=== PATIENT | female | born 2000 | race Caucasian/White ===

== ENCOUNTER → 2019-03-22 17:36 | Outpatient (CLI) | payer OTHER, SELFPAY ==
--- NOTE | 2019-03-22 | DI.MRI.S_ITS ---
PROCEDURE: MR WRIST LT WO/W CON INDICATIONS: LEFT WRIST GANGLION TECHNIQUE: Noncontrast coronal proton density fast spin echo and T2 fast spin echo with fat saturation; coronal 3-D gradient echo, axial T1 spin echo and T2 fast spin echo with fat saturation, axial T1 spin echo with fat saturation, sagittal T1 spin echo through the wrist. Post-contrast axial, coronal, and sagittal T1 spin echo with fat saturation through the wrist. COMPARISON: None. FINDINGS: Image quality: Excellent. Bones and cartilage: No suspicious osseous enhancement. The carpal bones are normally aligned. No bone marrow contusions or fractures. No evidence for avascular necrosis. Overlying cartilage surfaces appear normal. Carpal ligaments: The scapholunate and lunotriquetral ligaments appear intact. In the absence of intra-articular contrast, the extrinsic carpal ligaments are not well identified. On sagittal images, the pisohamate ligament appears intact. Triangular fibrocartilage complex: The triangular fibrocartilage appears intact. The adjacent meniscal homolog appears normal in the absence of intra-articular contrast. The extensor carpi ulnaris tendon is normal in location and morphology. Tendons and soft tissues: No suspicious soft tissue enhancement. The carpal tunnel structures appear normal, including the median nerve. The ulnar nerve appears normal within Guyon's canal. All six extensor tendon compartments demonstrate normal morphology, without pathologic tendon sheath fluid. 3 x 7 x 6 millimeter cystic structure is noted dorsal to the extensor digitorum and indices tendons at the level of capitate. No enhancement is noted within this area. IMPRESSION: 1. Finding is suggestive of a 3 x 7 x 6 mm ganglion cyst over dorsal aspect of the extensor digitorum and indices tendons at the level of capitate. 2. No other soft tissue mass or ganglion cyst is seen. No area of abnormal contrast enhancement. 3. Wrist tendons and ligaments are grossly intact. No marrow signal abnormality. No abnormal intraosseous enhancement. Dictated by: Terrell Sheikh M.D. on 03/23/2019 at 12:17 Approved by: Terrell Sheikh M.D. on 03/23/2019 at 12:28
== END ==
PROVIDERS: Visit Provider Orthopaedic Surgery
DX: M67.432 Ganglion, left wrist (principal)
CPT/HCPCS: 73223; A9579

== ENCOUNTER → 2019-11-15 07:45 | Outpatient (CLI) | payer OTHER, SELFPAY ==
--- NOTE | 2019-11-15 07:47 | DI.US.S_ITS ---
PROCEDURE: US OB LIMITED INDICATIONS: EFW; PLACENTAL LOCATION OUTSIDE/PRIOR DATING DATA: Last menstrual period (LMP): 03/19/19. LMP-based estimated date of delivery (YANA): 12/24/19. First dating scan (date and location): 08/07/19. Estimated date of delivery (YANA) from first dating scan: 12/24/19. TECHNIQUE: Real-time scanning was performed of the fetus, with image documentation and biometric measurements. COMPARISON: [facility], , US OB > 14 WEEKS, 08/07/2019, 7:17. FINDINGS: General: A single living intrauterine gestation is present. Presentation: Cephalic Placenta: Placental position is anterior without evidence of previa Amniotic fluid index: 17.3 cm heart rate: 141 beats per minute. Maternal cervical canal: 3.7 cm. biometrics: Biparietal diameter: 8.7 cm, 35 weeks 1 day Head circumference: 32.3 cm, 36 weeks 3 days Abdominal circumference: 32.0 cm, 35 weeks 6 days Femur length: 7.0 cm, 36 weeks 0 days Estimated gestational age from initial scan: 34 weeks 3 days Composite gestational age from present scan: 35 weeks 6 days Estimated weight and percentile: 2796 g (85th percentile) Other: A formal anatomic survey was not performed. No gross anatomic abnormalities are evident on the provided images. IMPRESSION: 1. Single live intrauterine at 35 weeks 6 days (current sonographic YANA 12/14/19) is borderline discordant with the dates from the previous ultrasound by 10 days. The need for followup imaging may be determined clinically. 2. Estimated weight is in the 85th percentile. Dictated by: Jett Abernathy M.D. on 11/15/2019 at 8:40 Approved by: Jett Abernathy M.D. on 11/15/2019 at 8:44
== END ==
PROVIDERS: Visit Provider Obstetrics & Gynecology
DX: Z34.83 Encounter for supervision of other normal pregnancy, third trimester (principal); Z3A.35 35 weeks gestation of pregnancy
CPT/HCPCS: 76815

== ENCOUNTER 2019-11-29 17:04 | Observation (INO) | payer OTHER, SELFPAY ==
--- NOTE | 2019-11-29 20:23 | P.TNLD_ITS ---
Visit Information Visit Information Date of evaluation: 11/29/19 Primary OB Provider: Candis Patel Comments/Additional reasons for admission: This patient is a 19yo @ 36 and 3 with GDM A1, presenting for an NST after an 06/15 BPP in the office. Patient reports feeling well today with no complaints obstetrical or otherwise. Reiterated kick counts and antepartum precautions. [facility] Medical History Anxiety (Chronic ~2005) Foot pain (Chronic ~2006) Seizure disorder (Inactive) Surgical History H/O foot surgery (Inactive) Social History marital status: unmarried,single household members: family (Father, mother, siblings.) lives independently: Yes occupational status: unemployed do you feel safe at home: Yes Smoking Status: Never smoker substance use type: does not use Type(s) of exercise: walking Review of Systems Constitutional Constitutional: Reports system reviewed and no additional complaints, except as documented Gastrointestinal Gastrointestinal: Reports system reviewed and no additional complaints, except as documented Exam Vital Signs (past 8 hours): 125/77, HR 95 Const General: cooperative, healthy appearing and comfortable Evaluation Evaluation Baseline heart rate: 140 Variability: Average (6-10) monitor accelerations: Present monitor decelerations: Absent Category of Tracing: I Diagnosis, Plan/Disposition Plan/Disposition Plan: After tracing settled to category 1 and reassuring, patient discharged with antepartum precautions to proceed with scheduled outpatient follow-up. OB Disposition: home
[2019-11-30 14:44] LABS: Strep Grp B PCR NEG for Grp B Strep
== END 2019-11-29 20:50 | disposition home or self-care (01) ==
LOC: LAB 17:08 → LABOR 17:10
PROVIDERS: Admitting Provider Obstetrics & Gynecology; Visit Provider Obstetrics & Gynecology
DX: O24.419 Gestational diabetes mellitus in pregnancy, unspecified control (principal); Z3A.36 36 weeks gestation of pregnancy
CPT/HCPCS: 59025; 59050; 87077; 87086; 87653; G0378

== ENCOUNTER 2019-12-01 14:45 | Observation (INO) | payer OTHER, SELFPAY ==
--- NOTE | 2019-12-01 16:08 | DI.US.S_ITS ---
PROCEDURE: US ABDOMEN LIMITED INDICATIONS: RUQ PAIN, SUSPECT GB PATHOLOGY TECHNIQUE: Real-time focused scanning was performed of the abdomen, with image documentation. COMPARISON: None. FINDINGS: Liver has a normal echo pattern. Gallbladder is unremarkable. No stones or fluid around the gallbladder or gallbladder wall thickening or pain on examination. Visualized portions of the pancreas are unremarkable. No biliary ductal dilatation. No right hydronephrosis. IMPRESSION: Unremarkable limited ultrasound of the right upper quadrant. No evidence of gallstone disease. Dictated by: Elver Metz M.D. on 12/01/2019 at 16:12 Approved by: Elver Metz M.D. on 12/01/2019 at 16:13
[2019-12-01 17:14] LABS: Add Manual Diff / Slide Review NO; Basophils Absolute Auto 0 /uL (0-100); Basophils Percent Auto 0.5 % (0-2); Eosinophils Absolute Auto 100 /uL (0-450); Eosinophils Percent Auto 0.8 % (2-4); Hematocrit 28.4 % (36-46); Hemoglobin 9.3 g/dL (12.0-16.0); Lymphocytes Absolute Auto 1700 /uL (1100-4500); Lymphocytes Percent Auto 20.2 % (25-40); Mean Corpuscular HGB Conc 32.8 % (30-36); Mean Corpuscular Hemoglobin 24.4 PG (26-34); Mean Corpuscular Volume 74.2 fL (80-100); Monocytes Absolute Auto 900 /uL (0-900); Monocytes Percent Auto 11.3 % (3-14); Neutrophils Absolute Auto 5600 /uL (1500-7000); Neutrophils Percent Auto 67.2 % (50-75); Platelet Count 201 X10^3/uL (150-400); Red Blood Cell Count 3.82 X10^6/uL (4.0-5.2); Red Cell Distribution Width 17.4 % (11.6-14.8); White Blood Cell Count 8.3 X10^3/uL (4.5-11.0)
--- NOTE | 2019-12-01 17:24 | PM.OBTRLD ---
Visit Information Visit Information Date of evaluation: 12/01/19 Primary OB Provider: Candis Patel Reason for Evaluation: Yes non-stress test Comments/Additional reasons for admission: This patient is a 19-year-old at 36 weeks gestation with GDM A1 presenting for scheduled by weekly NSTs. On presentation, the patient reported that she had had nausea, vomiting, and right upper quadrant pain since that morning, keeping nothing down p.o.. The patient denied fevers, chills, muscle aches, headaches, visual changes, diarrhea, or sick contacts. The patient denied UTI symptoms or other obstetrical complaints. Vital Signs Vital Signs: 111/61, T 36.1F. HR 130s-> 110s after PO hydration. [facility] Medical History Anxiety (Chronic ~2005) Foot pain (Chronic ~2006) Seizure disorder (Inactive) Surgical History H/O foot surgery (Inactive) Social History marital status: unmarried,single household members: family (Father, mother, siblings.) lives independently: Yes occupational status: unemployed do you feel safe at home: Yes Smoking Status: Never smoker substance use type: does not use Type(s) of exercise: walking Review of Systems Constitutional Constitutional: Reports as per HPI Cardiovascular Cardiovascular: Reports system reviewed; no additional complaints, except as documented Respiratory Respiratory: Reports system reviewed and no additional complaints, except as documented Gastrointestinal Gastrointestinal: Reports as per HPI Genitourinary Genitourinary: Reports as per HPI Exam Const General: cooperative, healthy appearing and comfortable Other: Patient resting in bed, accompanied by FOB and asking when she can eat a beef jerky stick that they brought. Resp Effort & Inspection: normal respiratory effort Auscultation: clear to auscultation bilaterally Cardio Rate: regular rate Rhythm: regular rhythm GI Palpation: soft and No tender Objective Labs Result Diagrams: 12/01/19 17:05 12/01/19 17:05 Labs: Laboratory Results - last 24 hr 12/01/19 17:05 WBC 8.3 RBC 3.82 L Hgb 9.3 L Hct 28.4 L MCV 74.2 L MCH 24.4 L MCHC 32.8 RDW 17.4 H Plt Count 201 Neut % (Auto) 67.2 Lymph % (Auto) 20.2 L Curry % (Auto) 11.3 Eos % (Auto) 0.8 L Baso % (Auto) 0.5 Neut # (Auto) 5600 Lymph # (Auto) 1700 Curry # (Auto) 900 Eos # (Auto) 100 Baso # (Auto) 0 Evaluation Evaluation Baseline heart rate: 150 Variability: Average (6-10) monitor accelerations: Present monitor decelerations: Absent Category of Tracing: I Laboratory results: Laboratory Tests 12/01/19 17:05 WBC 8.3 RBC 3.82 L Hgb 9.3 L Hct 28.4 L MCV 74.2 L MCH 24.4 L MCHC 32.8 RDW 17.4 H Plt Count 201 Neut % (Auto) 67.2 Lymph % (Auto) 20.2 L Curry % (Auto) 11.3 Eos % (Auto) 0.8 L Baso % (Auto) 0.5 Neut # (Auto) 5600 Lymph # (Auto) 1700 Curry # (Auto) 900 Eos # (Auto) 100 Baso # (Auto) 0 Diagnosis, Plan/Disposition Final Diagnosis (1) : Current Visit: No Status: Acute Problem details: This patient presented reporting nausea and vomiting with right upper quadrant pain, with tachycardia but no other abnormal exam findings on admission. She had a negative RUQ US for cholelithiasis, and had labs notable for anemia, for which she has previously been prescribed iron supplements. The patient tolerated PO on admission without antiemetics, normalized her heartrate to her baseline after PO hydration, and had reassuring status. She was given antepartum precautions and discharged home with scheduled follow up.
[2019-12-01 17:25] LABS: Alanine Aminotransferase 10 IU/L (<35); Albumin 3.5 g/dL (3.5-5.0); Albumin Globulin Ratio 1.1 (1.0-2.8); Alkaline Phosphatase 136 U/L (38-126); Amylase 73 U/L (30-110); Aspartate Aminotransferase 19 IU/L (14-36); BUN Creatinine Ratio 7.5 (6-22); Bilirubin Total 0.4 mg/dL (0.2-1.3); Blood Urea Nitrogen 3 mg/dL (7-17); Calcium 9.6 mg/dL (8.4-10.2); Carbon Dioxide 21 mmol/L (22-32); Chloride 106 mmol/L (98-107); Estimated Glomerular Filt Rate > 60.0 mL/min (>60); Globulin 3.1 g/dL (1.7-4.1); Glucose 141 mg/dL (70-100); HEMOLYSIS < 15 (0-50); Lipase 87 U/L (23-300); Sodium 136 mmol/L (137-145); Total Protein 6.6 g/dL (6.3-8.2)
== END 2019-12-01 18:12 | disposition home or self-care (01) ==
PROVIDERS: Admitting Provider Obstetrics & Gynecology; Visit Provider Obstetrics & Gynecology
DX: O26.893 Other specified pregnancy related conditions, third trimester (principal); Z3A.36 36 weeks gestation of pregnancy; R11.2 Nausea with vomiting, unspecified; R10.11 Right upper quadrant pain; O24.419 Gestational diabetes mellitus in pregnancy, unspecified control
CPT/HCPCS: 36415; 59025; 59050; 76705; 80053; 82150; 83690; 85025; 93005; 93010; G0378; G0379

== ENCOUNTER 2019-12-06 10:57 | Outpatient (CLI) | payer OTHER, SELFPAY ==
--- NOTE | 2019-12-06 13:33 | P.TNLD_ITS ---
Visit Information Visit Information Date of evaluation: 12/06/19 Primary OB Provider: Candis Patel Reason for Evaluation: Yes non-stress test Comments/Additional reasons for admission: This patient is a 19-year-old at 37 and 3 with GDM a 2 presenting for scheduled by weekly testing with no obstetrical complaints. Patient diagnosed with borderline macrosomia with an EFW of 9 lb 5 oz, greater than the 98th percentile and AC greater than the 90th percentile. Patient planned for a primary section for macrosomia. [facility] Medical History Anxiety (Chronic ~2005) Foot pain (Chronic ~2006) Seizure disorder (Inactive) Surgical History H/O foot surgery (Inactive) Social History marital status: unmarried,single household members: family (Father, mother, siblings.) lives independently: Yes occupational status: unemployed do you feel safe at home: Yes Smoking Status: Never smoker substance use type: does not use Type(s) of exercise: walking Review of Systems Constitutional Constitutional: Reports system reviewed and no additional complaints, except as documented Exam Vital Signs (past 8 hours): 122/68, heart rate 101 Evaluation Evaluation Baseline heart rate: 150 Variability: Average (6-10) monitor accelerations: Present monitor decelerations: Absent Category of Tracing: I Comments: sleep cycle resolved during testing. Diagnosis, Plan/Disposition Plan/Disposition Plan: Patient with reassuring status, to follow up on Wednesday for further testing. OB Disposition: home
== END 2019-12-06 13:01 ==
LOC: LABOR 12:53 → OB 12-07 09:48
PROVIDERS: Visit Provider Obstetrics & Gynecology
DX: O24.419 Gestational diabetes mellitus in pregnancy, unspecified control (principal); Z3A.37 37 weeks gestation of pregnancy
CPT/HCPCS: 59025; 87086; G0378; G0379

== ENCOUNTER → 2019-12-06 11:13 | Outpatient (CLI) | payer OTHER, SELFPAY | PROVIDERS: Visit Provider Obstetrics & Gynecology | DX: Z34.03 Encounter for supervision of normal first pregnancy, third trimester (principal) | CPT/HCPCS: 87086 ==

== ENCOUNTER 2019-12-08 15:59 | Outpatient (CLI) | payer OTHER, SELFPAY | END 2019-12-08 17:04 | disposition home or self-care (01) | LOC: LABOR 16:07 → OB 12-11 10:52 | PROVIDERS: Visit Provider Obstetrics & Gynecology | DX: O24.415 Gestational diabetes mellitus in pregnancy, controlled by oral hypoglycemic drugs (principal); Z3A.37 37 weeks gestation of pregnancy | CPT/HCPCS: 59025; G0378; G0379 ==

== ENCOUNTER 2019-12-11 15:59 | Outpatient (CLI) | payer OTHER, SELFPAY ==
--- NOTE | 2019-12-11 17:07 | P.TNLD_ITS ---
Visit Information Visit Information Date of evaluation: 12/11/19 Primary OB Provider: Candis Patel Reason for Evaluation: Yes non-stress test Comments/Additional reasons for admission: This patient is a 19yo @38+1 with poorly controlled GDMA2 on metformin started last week, scheduled for pCS tomorrow AM for macrosomia (4725g, >99%, AC too large to have percentile assigned). She has no complaints obstetrical or otherwise. Vital Signs Vital Signs: 118/77, HR 126, resolved with PO hydration. [facility] Medical History Anxiety (Chronic ~2005) Foot pain (Chronic ~2006) Seizure disorder (Inactive) Surgical History H/O foot surgery (Inactive) Social History marital status: unmarried,single household members: family (Father, mother, siblings.) lives independently: Yes occupational status: unemployed do you feel safe at home: Yes Smoking Status: Never smoker substance use type: does not use Type(s) of exercise: walking Review of Systems Constitutional Constitutional: Reports system reviewed and no additional complaints, except as documented Gastrointestinal Gastrointestinal: Reports system reviewed and no additional complaints, except as documented Genitourinary Genitourinary: Reports system reviewed and no additional complaints, except as documented Exam GI Palpation: soft and No tender Evaluation Evaluation Baseline heart rate: 140 Variability: Average (6-10) monitor accelerations: Present monitor decelerations: Absent Category of Tracing: I (minimal on admission, resolved with PO hydration as is patient's usual) Comments: BPP 08/17, MOISÉS 21 in clinic Diagnosis, Plan/Disposition Plan/Disposition Plan: Discharge home, to return in AM for scheduled CS. OB Disposition: home
== END 2019-12-11 17:07 | disposition home or self-care (01) ==
LOC: LABOR 16:44 → OB 12-12 11:22
PROVIDERS: Referring Provider Obstetrics & Gynecology; Visit Provider Obstetrics & Gynecology
DX: O24.415 Gestational diabetes mellitus in pregnancy, controlled by oral hypoglycemic drugs (principal); Z3A.38 38 weeks gestation of pregnancy
CPT/HCPCS: 59025; 76815; G0378; G0379

== ENCOUNTER 2019-12-12 08:52 | Inpatient (IN) | payer OTHER, SELFPAY ==
--- NOTE | 2019-12-12 09:12 | PM.OBHP.1 ---
OB HPI Date/Time Date of admission: 12/12/19 Date Patient Seen: 12/12/19 Time Patient Seen: 09:15 History of Present Condition Chief complaint: 28614 PRIMARY : 1 Para: 2 Estimated Date of Delivery: 12/24/19 Estimated Gestational Age (weeks): 38 Narrative: Olivier Herr is a 19 year old at 38 and 2 with poorly controlled GDM A2 on 500 mg of metformin b.i.d. and a macrosomic fetus with polyhydramnios, presenting today for scheduled primary section. Yesterday's ultrasound reveals a fetus weighing 10 lb 7 oz or 4725 g, greater than the 99th percentile, with an AC so large that percentile could not be assessed in the usual algorithm. Especially given the patient's stature and clinical pelvimetry on exam, the patient was counseled for primary section for macrosomia. We discussed at length yesterday and reiterated today the risks of section, including damage to bowel and bladder, infection, blood loss requiring transfusion, and risk of requiring sections or placental abnormalities in subsequent pregnancies. The patient and her partner vocalized understanding repeatedly. We also discussed the risks of vaginal delivery with a macrosomic fetus, and I discussed with the patient that given the overall clinical picture, she is a high risk of failure to progress in labor, and especially of shoulder dystocia or other injury given the size and weight distribution of the fetus. Patient vocalized understanding. The patient is otherwise feeling well today, with no obstetrical complaints including normal movement, no vaginal bleeding, no loss of fluid, and rare contractions. She denies headaches, visual changes, chest pain, abdominal pain, or any other complaints today. Her has also been complicated by 3rd trimester anemia. The patient has been prescribed iron supplements repeatedly, is intermittently compliant with these. Indications Operative indications ( section): Macrosomia in the setting of diabetes History of Present care: good care Dating criteria: LMP confirmed by 1st trimester US Ultrasounds: normal 1st trimester US and normal mid trimester US Obstetrical complications: gestational diabetes Preadmission Labs Blood type: AB (-) negative -: Antibody screen: negative, GBS status: negative, HBsAG: negative, HIV: negative and RPR/VDLR: negative -: Chlamydia screen: not detected and Gonorrhea screen: not detected -: Rubella: immune and Varicella: not immune Evaluation Evaluation Baseline heart rate: 150 Variability: Minimal (3-5) monitor accelerations: Present monitor decelerations: Absent Contraction Frequency (minutes): 3 Category of Tracing: II (Variability improving.) [facility] Medical History Anxiety (Chronic ~2005) Foot pain (Chronic ~2006) Seizure disorder (Inactive) Surgical History H/O foot surgery (Inactive) Social History marital status: unmarried,single household members: family (Father, mother, siblings.) lives independently: Yes occupational status: unemployed do you feel safe at home: Yes Smoking Status: Never smoker substance use type: does not use Type(s) of exercise: walking Meds Home Medications and Allergies Home Medications Medication Instructions Recorded Confirmed Type prenat.vits,swapna,syx-tvun-oxadt 1 tab PO DAILY 10/25/19 12/06/19 History nystatin-triamcinolone 100,000 1 applictn TOP BID #30 gram 11/16/19 12/06/19 Rx unit/gram-0.1 % topical ointment metformin 500 mg tablet 500 mg PO BID #60 tab 12/06/19 12/06/19 Rx Allergies Allergy/AdvReac Type Severity Reaction Status Date / Time bee venom protein (honey bee) Allergy Hives Verified 12/06/19 10:37 Penicillins AdvReac Unknown Verified 12/06/19 10:37 red dye AdvReac Mood swings Verified 12/06/19 10:37 Review of Systems Constitutional Constitutional: Reports system reviewed and no additional complaints, except as documented Cardiovascular Cardiovascular: Reports system reviewed; no additional complaints, except as documented Respiratory Respiratory: Reports system reviewed and no additional complaints, except as documented Gastrointestinal Gastrointestinal: Reports system reviewed and no additional complaints, except as documented Genitourinary Genitourinary: Reports system reviewed and no additional complaints, except as documented Exam Vital Signs (past 8 hours): 132/76, heart rate 127, temperature 37.9? C Const General: cooperative, healthy appearing, comfortable and anxious Resp Effort & Inspection: normal respiratory effort Auscultation: clear to auscultation bilaterally Cardio Rate: regular rate Rhythm: regular rhythm GI Palpation: soft and No tender Objective Labs Result Diagrams: 12/12/19 09:30 Assessment and Plan Assessment and Plan Assessment and Plan narrative: This patient is a 19-year-old at 38 weeks 2 days with poorly controlled GDM a 2 on metformin, diagnosed with macrosomia yesterday and scheduled for primary section. Risks and benefits of both section trial of labor were discussed with patient as above, and patient partner vocalized understanding. Patient continues to be anemic, but hemoglobin stable from prior labs. Patient reports intermittently taking her prescribed iron supplements. Patient will be prepared for primary section. - cEFM, toco - CBC, T&S - NPO, IV fluids - routine preoperative care
--- NOTE | 2019-12-12 09:12 | PM.PREOP ---
Pre-operative Note Interval Note History & Physical reviewed/Exam performed by Physician: Yes Changes to H&P: No
[2019-12-12 09:44] LABS: Add Manual Diff / Slide Review NO; Basophils Absolute Auto 0 /uL (0-100); Basophils Percent Auto 0.3 % (0-2); Eosinophils Absolute Auto 100 /uL (0-450); Eosinophils Percent Auto 0.9 % (2-4); Hemoglobin 9.6 g/dL (12.0-16.0); Lymphocytes Absolute Auto 1900 /uL (1100-4500); Lymphocytes Percent Auto 17.1 % (25-40); Mean Corpuscular HGB Conc 32.1 % (30-36); Mean Corpuscular Hemoglobin 23.5 PG (26-34); Mean Corpuscular Volume 73.4 fL (80-100); Monocytes Absolute Auto 1100 /uL (0-900); Monocytes Percent Auto 9.9 % (3-14); Neutrophils Absolute Auto 8000 /uL (1500-7000); Neutrophils Percent Auto 71.8 % (50-75); Platelet Count 227 X10^3/uL (150-400); Red Blood Cell Count 4.09 X10^6/uL (4.0-5.2); Red Cell Distribution Width 17.9 % (11.6-14.8); White Blood Cell Count 11.2 X10^3/uL (4.5-11.0)
[2019-12-12] MEDS: LACTATED RINGERS 1,000 ML 42 ML IV ×2 (11:00→12:45)
[2019-12-12] MEDS: CLINDAMYCIN 900 MG/50 ML PIGGYBACK 50 MG IV (11:04)
[2019-12-12] MEDS: GENTAMICIN IV (11:09)
[2019-12-12] MEDS: SODIUM CHLORIDE 0.9% IV (11:09)
--- NOTE | 2019-12-12 11:47 | SUR.OPER ---
Supine on Padded OR bed, head on pillow, safety belt at thigh, arms secured on padded arm boards at <90 degrees abduction. Bump under right buttock. Legs uncrossed with tape over blanket to lower legs.
--- NOTE | 2019-12-12 11:56 | SUR.OPER ---
Viable female delivered at 1134. Placenta and cord blood sent with L&D nurse.
[2019-12-12 12:24] VITALS: BP 93/46; PULSE 86; RESP 18; TEMP 36.6; O2SAT 97
[2019-12-12 12:29] VITALS: BP 93/52; PULSE 79; RESP 17; O2SAT 99
[2019-12-12 12:30] VITALS: BP 93/52; PULSE 74; RESP 14; O2SAT 97
[2019-12-12 12:35] VITALS: BP 97/48; PULSE 87; RESP 17; TEMP 36.5; O2SAT 100
[2019-12-12 12:40] VITALS: BP 99/52; PULSE 83; RESP 16; TEMP 36.6; O2SAT 99
--- NOTE | 2019-12-12 12:44 | P.OP_ITS ---
Operative Date/Time/Diagnoses Date of procedure: 12/12/19 Time of procedure: 11:00 Pre-op diagnosis: GDMA2, macrosomia Post-op diagnosis: same Procedure & Clinicians Procedure: primary section Same procedure as scheduled: Yes Indications: EFW 4725g, 99% on growth US, GDMA2 on metformin Surgeon: Candis Patel Junior Database Administrator: Nate Bowles Anesthesia Type: Spinal Operative Notes Findings: Female infant in cephalic presentation. Weight 8#5, apgars 8+9. Normal uterus, tubes, and ovaries. Closure Type: primary Specimen(s): none sent Estimated Blood Loss (mL): 500 Blood products transfused: none Procedure in detail: EBL: 500 Fluids:1800 UOP: 50ccs Procedures: The patient was taken to the operating room where spinal anesthesia was placed, complicated by anxiety from the patient.. She was prepped and draped in the normal sterile fashion in the dorsal supine position with a leftward tilt. A Pfannenstiel skin incision was made with a scalpel and carried through to the underlying layer of fascia. The fascia was incised in the midline and the incision extended laterally with Bagley scissors. The inferior aspect of this incision was grasped with Juvenal clamps, elevated. and the underlying rectus muscles dissected off bluntly. Attention was then turned to the superior aspect of this incision which, in a similar fashion, was grasped, tented up with the Juvenal clamps, and the rectus muscles dissected off bluntly. The rectus muscles were then in the midline, and the peritoneum identified, tented up, and entered sharply with Metzenbaum scissors. The peritoneal incision was extended superiorly and inferiorly with good vi sualization of the bladder. The bladder blade was inserted and the vesicouterine peritoneum identified, grasped with pickups, and entered sharply with the Metzenbaum scissors. This incision was extended laterally, and the bladder flap created digitally. The bladder blade was then reinserted and the lower uterine segment incised in transverse fashion with the scalpel. The uterine incision was bluntly extended laterally. The bladder blade was removed, and the infant's head delivered atraumatically. After 45 seconds of delayed cord clamping, the cord was clamped and cut. The nose and mouth were suctioned as needed with a bulb synringe, and the was handed off to awaiting pediatricians. The placenta was then removed spontaneously, and the uterus was exteriorized and cleared of all clots and debris. The uterine incision was repaired with 1-0 chromic in a running, locked fashion a 2nd layer of the same suture was used to obtain excellent hemostasis. The uterus was returned to the abdomen, and the gutters were cleared of all clots and debris. A bladder flap closure was performed with 2 0 Vicryl. The peritoneum was closed with 2-0 Vicryl, and the fascia reapproximated with 0 Vicryl in a running fashion. The subcutaneous layer was placed with 3 0 Vicryl in an interrupted fashion and the skin was closed with 4-0 biosyn in a running fashion. The patient tolerated the procedure well sponge lap and needle counts were correct x2. 2 g of Ancef were given at commencement of the case. The patient was taken to the recovery room in stable condition. Complications: none Post-operative Condition: stable Disposition: PACU Plan for aftercare: Routine postoperative care
--- NOTE | 2019-12-12 12:46 | SUR.PHASEI ---
IV #2 not documented in OR, documented and completed in PACU.
[2019-12-12] MEDS: KETOROLAC 30 MG/ML VIAL IV ×2 (14:23→20:26)
[2019-12-12] MEDS: LACTATED RINGERS 1,000 ML 125 ML IV ×2 (14:24→22:34)
[2019-12-13] MEDS: KETOROLAC 30 MG/ML VIAL IV ×2 (02:27→09:30)
[2019-12-13 06:42] LABS: Hematocrit 23.9 % (36-46); Hemoglobin 7.6 g/dL (12.0-16.0)
--- NOTE | 2019-12-13 08:26 | PM.OBPN.1 ---
Subjective - OB Subjective Patient comments: no complaints and pain well controlled Tranquillity baby status: doing well [place]an[place]illity feeding status: exclusively breast feeding Narrative: Patient reports feeling well today, tolerating p.o. with good pain control. Patient is not yet ambulated, Castañeda remains in place. I discussed with the patient that the Castañeda be removed this morning, and I strongly encouraged her to ambulate, especially given her mother's medical history of protein C deficiency. Discussed that since her hemoglobin has dropped appropriately but to 7.6, I would rather have her ambulate for VTE prevention and provide Lovenox. Patient partner vocalized understanding. Date Patient Seen: 12/13/19 Time Patient Seen: 08:26 Exam Vital Signs (past 8 hours): 99/53, HR 86, T 97.2 Oxygen Delivery Method Room Air Const General: cooperative, healthy appearing and comfortable Resp Effort & Inspection: normal respiratory effort Auscultation: clear to auscultation bilaterally Cardio Rate: regular rate Rhythm: regular rhythm GI Palpation: soft and No tender Other: Fundus firm, 2 below U. bandage in place, incision appears clean dry intact, no other abnormalities. Objective Labs Result Diagrams: 12/13/19 06:32 Labs: Laboratory Results - last 24 hr 12/12/19 12/12/19 12/13/19 09:30 09:30 06:32 WBC 11.2 H RBC 4.09 Hgb 9.6 L 7.6 L Hct 30.0 L 23.9 L MCV 73.4 L MCH 23.5 L MCHC 32.1 RDW 17.9 H Plt Count 227 Neut % (Auto) 71.8 Lymph % (Auto) 17.1 L [place] % (Auto) 9.9 Eos % (Auto) 0.9 L Baso % (Auto) 0.3 Neut # (Auto) 8000 H Lymph # (Auto) 1900 [place] # (Auto) 1100 H Eos # (Auto) 100 Baso # (Auto) 0 Blood Type B Positive Antibody Screen Negative Assessment & Plan Plan day: 1 plan OB: routine postop care Comments: This patient is recovering appropriately from her section. Reiterated the importance of early ambulation today. Patient was informed that she should eat, ambulate, and attempt a voiding trial as appropriate. Patient vocalized understanding. Time Spent With Patient Time: Total time spent is greater than 50% in coordination of care (as documented) at patient's floor/unit and/or counseling patient: Time with patient: less than 15 minutes
[2019-12-13] MEDS: FERROUS GLUCONATE 324 MG TABLET PO (09:30)
[2019-12-13] MEDS: IBUPROFEN 600 MG TABLET PO (21:48)
[2019-12-13] MEDS: ACETAMINOPHEN 325 MG TABLET 650 MG PO (21:48)
[2019-12-14 07:47] VITALS: BP 99/52; PULSE 83; RESP 16; TEMP 36.6
[2019-12-14] MEDS: IBUPROFEN 600 MG TABLET PO ×2 (08:10→14:23)
--- NOTE | 2019-12-14 09:11 | PM.OBPN.1 ---
Subjective - OB Subjective Patient comments: no complaints and pain well controlled baby status: nursing well feeding status: exclusively breast feeding Date Patient Seen: 12/14/19 Time Patient Seen: 09:11 Interval history: Patient reports feeling well this AM, voiding, ambulating, passing flatus, tolerating PO, with acceptable pain control an dno other complaints. Exam Vital Signs (past 8 hours): 99/53, HR 86, 97.2F Oxygen Delivery Method Room Air Resp Effort & Inspection: normal respiratory effort Auscultation: clear to auscultation bilaterally Cardio Rate: regular rate Rhythm: regular rhythm GI Palpation: soft and No tender Other: Fundus firm, well below u. Incision c/d/i. Extrem Other: 1+ edema in LE, symmetrical Objective Labs Result Diagrams: 12/13/19 06:32 Assessment & Plan Plan day: 2 plan OB: discharge home Comments: care and precautions discussed, including continuous use of tylenol and motrin, each q6 hours, with breakthrough opioids. Patient otherwise doing well, anticipatory guidance discussed. Time Spent With Patient Time: Total time spent is greater than 50% in coordination of care (as documented) at patient's floor/unit and/or counseling patient: Time with patient: 15-24 minutes
--- NOTE | 2019-12-14 09:17 | PM.OBDS.1 ---
Discharge Providers Provider Date of admission: 12/12/19 08:52 Discharge Date: 12/14/19 Primary care physician: Dori Montes DO Consults: 12/12/19 13:46 Consult to Strong Nitric Operator Routine Comment: Discharge provider: Candis Patel MD Summary Hospital Course Date Patient Seen: 12/14/19 Time Patient Seen: 09:18 Procedures: Primary section for macrosomia in the setting of GDMA2. Hospital Course: This patient was admitted for scheduled section at 38+2, with a growth of 4725g in the setting of polyhydramnios and GDMA2. The procedure was uncomplicated, and recovery uneventful. The patient was discharged on POD#2. Peripartum Data Infant Delivery Method: Section complications: none 1: Gender: Female Disposition of : home Discharge Diagnosis (1) delivery delivered: Start Date: 12/12/19 Start Time: 11:00 Status: Acute Status at Discharge Cognitive/behavioral status at discharge: oriented Functional status at discharge: independent ambulation Overall status at discharge: patient is progressing back to baseline Time Spent with Patient Time attestation: Total time spent providing and/or coordinating discharge services: Time spent: Greater than 30 minutes Objective Labs Result Diagrams: 12/13/19 06:32 Exam Vital Signs (past 8 hours): Oxygen Delivery Method Room Air Discharge Plan Discharge Plan Patient Disposition: Home Discharge orders & Medications Prescriptions: New oxycodone 5 mg tablet 5 mg PO Q8H PRN (Reason: pain) Qty: 14 RF: 0 Continued prenat.vits,swapna,[id number] Tablet 1 tab PO DAILY RF: 0 nystatin-triamcinolone 100,000-0.1 unit/gram-% ointment 1 applictn TOP BID Qty: 30 RF: 2 Discontinued metformin 500 mg tablet 500 mg PO BID Qty: 60 RF: 1 Follow up/Referrals: Candis Patel MD [Physician] - 1 Week Dori Montes DO [Primary Care Provider] - Diet/Activity/Treatments Diet: Regular Activity: Nothing in the vagina for 6 weeks. Avoid lifting more than 10 lbs for 6 weeks. If you develop increasing bleeding, pain, fevers, chills, nausea, vomiting, headaches, trouble breathing, or any other symptoms, call or come to the ED. Skin/Wound/Dressing Care Report to your healthcare provider any signs of infection, such as:: chills, fever, night sweats, increased pain, unusual drainage and unusual redness Dressing: To be removed in clinic in one week. Visit Report/Discharge Packet Instructions: DI for Discharge Data Primary Care Provider: Dori Montes
== END 2019-12-14 17:25 | disposition home or self-care (01) | DRG 788 ==
PROVIDERS: Admitting Provider Obstetrics & Gynecology; PCP Family Medicine; Referring Provider Obstetrics & Gynecology; Visit Provider Obstetrics & Gynecology
PROC: 10D00Z1 Extraction of Products of Conception, Low, Open Approach (ICD-10-PCS; CPT 59514; principal; 2019-12-12 11:00)
DX: O24.425 Gestational diabetes mellitus in childbirth, controlled by oral hypoglycemic drugs (principal); Z3A.38 38 weeks gestation of pregnancy; Z37.0 Single live birth; O66.2 Obstructed labor due to unusually large fetus; O40.3XX0 Polyhydramnios, third trimester, not applicable or unspecified; O99.02 Anemia complicating childbirth; D64.9 Anemia, unspecified
CPT/HCPCS: 36415; 59050; 59514; 59515; 85014; 85018; 85025; 86850; 86900; 86901; J1885; J2274; J2405; J2590; J2765; J3010

== ENCOUNTER 2021-09-12 23:32 | Emergency (ER) | payer OTHER, MEDICAID, SELFPAY ==
[2021-09-12 23:45] VITALS: BP 133/82; PULSE 81; RESP 28; TEMP 36.8; O2SAT 98; BMI 33.8
[2021-09-13] VITALS (8 sets, daily range): BP systolic 123–135; BP diastolic 59–77; PULSE 69–87; RESP 12–20; O2SAT 97–99
[2021-09-13] MEDS: ONDANSETRON 4 MG/2 ML INJ IV (00:08)
--- NOTE | 2021-09-13 00:14 | DI.US.S_ITS ---
PROCEDURE: US ABDOMEN LIMITED INDICATIONS: RUQ PAIN TECHNIQUE: Real-time scanning was performed of the abdominal and retroperitoneal organs, with image documentation. COMPARISON: [facility], , US ABDOMEN LIMITED, 12/01/2019, 16:27. FINDINGS: Liver: Homogeneous echotexture. No evidence of focal mass lesion. No intra hepatic biliary ductal dilatation Gallbladder: Sonolucent without cholelithiasis. No gallbladder wall thickening. No pericholecystic fluid or Tineo's sign. Common Bile Duct: 4.6 mm. Pancreas: Unremarkable as visualized IMPRESSION: 1. Unremarkable right upper quadrant ultrasound Approved by: Booker Hernández M.D. on 09/13/2021 at 0:12
--- NOTE | 2021-09-13 00:15 | ED_ITS ---
HPI - Abdominal Pain General Chief Complaint: Abdominal Pain Stated Complaint: abdominal pain x2 hours Time Seen by Provider: 09/13/21 00:09 Source: patient and family Mode of arrival: Wheelchair Limitations: no limitations History of Present Illness HPI narrative: This is a 21-year-old female who had sudden onset of right sided epigastric abdominal pain while eating dinner this evening. She has had similar episodes in the past but never this intense. Always with food. She has not had fevers. She has had nausea and vomiting this evening. She denies back or flank pain. She denies dysuria urgency or frequency. No diarrhea constipation. No vaginal bleeding or discharge. Patient states and her family all the women have had have a gallbladder is out about a year after their 1st child. She is 1 year . 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 She has never required any medications or had any interventions such as surgery or ablation start her heart. She has had a C- section. She denies any daily medications. She does have a history of mood disorder and anxiety but is not taking any oral medications. She states she is allergic to penicillin. She is accompanied by her sister. No tobacco, occasional alcohol, no illicit. Related Data Home Medications Medication Instructions Recorded Confirmed prenat.vits,swapna,pek-ihmi-pclul 1 tab PO DAILY 10/25/19 01/16/20 Previous Rx's Medication Instructions Recorded famotidine 40 mg tablet (Pepcid) 40 mg PO DAILY #30 tab 09/13/21 famotidine 40 mg tablet (Pepcid) 40 mg PO DAILY #30 tab 09/13/21 Allergies Allergy/AdvReac Type Severity Reaction Status Date / Time bee venom protein (honey bee) Allergy Hives Verified 01/16/20 09:34 Penicillins AdvReac Unknown Verified 01/16/20 09:34 red dye AdvReac Mood swings Verified 01/16/20 09:34 Review of Systems Review of Systems ROS Unobtainable: All systems reviewed & are unremarkable except as noted in HPI and below Patient History Medical History (Updated 09/13/21 @ 03:00 by Екатерина Pagan DO) Anxiety (~2005) Foot pain (~2006) Seizure disorder Surgical History H/O foot surgery Social History marital status: unmarried,single household members: family (Father, mother, siblings.) lives independently: Yes occupational status: unemployed do you feel safe at home: Yes Smoking Status: Never smoker substance use type: does not use Type(s) of exercise: walking Smoking Status: Never smoker alcohol intake frequency: holidays/special occasions only Substance Use Type: does not use Exam Narrative Exam Narrative: GENERAL: Alert and oriented x three, female in moderate distress. HEENT: Head normocephalic, atraumatic, EOMI, pupils reactive, face symmetric, moist mucous membranes NECK: Supple, full range of motion CARDIOVASCULAR: Regular rate and rhythm without murmurs, rubs or gallops. RESPIRATORY: Breath sounds equal bilaterally, no wheezes rales or rhonchi. ABDOMEN: Soft, generalized tenderness but especially tender right upper quadra nt. Normoactive bowel sounds all 4 quadrants. No guarding, + rebound, rigidity, no mass. Nondistended. : No CVA tenderness EXTREMITIES: Normal range of motion, no clubbing or edema. Neurovascularly intact NEUROLOGICAL: Cranial nerves II through XII grossly intact. Moving all extremities SKIN: Warm, dry, no petechiae, no rashes or lesions. Initial Vital Signs Initial Vital Signs: Vital Signs Temperature 98.3 F 09/12/21 23:45 Pulse Rate 81 09/12/21 23:45 Respiratory Rate 28 H 09/12/21 23:45 Blood Pressure 133/82 09/12/21 23:45 Pulse Oximetry 98 09/12/21 23:45 Course Orders Ordered: ED Orders 09/12/21 23:45 EKG-12 Lead Stat 09/12/21 23:59 Complete Blood Count AUTO DIFF Stat Comprehensive Metabolic Panel Stat Lipase Stat 09/13/21 00:14 US abdomen limited Stat 09/13/21 00:33 CT abdomen pelvis w con Stat 09/13/21 02:30 Urine Culture Stat Urine Microscopic Stat Discontinued Medications Sodium Chloride (Normal Saline 0.9%) 1,000 mls @ 1,000 mls/hr IV BOLUS ONE Stop: 09/13/21 01:14 Last Infusion: 09/13/21 01:57 Dose: 0 mls/hr Documented by: Admin: 09/13/21 00:28 Dose: 1,000 mls/hr Documented by: EDDA Ketorolac Tromethamine (Ketorolac 30 Mg/Ml Vial) 30 mg IV NOW ONE Stop: 09/13/21 00:15 Last Admin: 09/13/21 00:29 Dose: 30 mg Documented by: EDDA Ondansetron HCl (Ondansetron 4 Mg/2 Ml Inj) 4 mg IV NOW ONE Stop: 09/12/21 23:45 Last Admin: 09/13/21 00:08 Dose: 4 mg Documented by: EDDA Vital Signs Vital signs: Vital Signs - 8 hr 09/12/21 23:45 09/13/21 00:18 09/13/21 00:21 Temperature 98.3 F Pulse Rate 81 79 77 Respiratory Rate 28 H 20 14 Blood Pressure 133/82 135/70 Pulse Oximetry 98 98 98 09/13/21 00:30 09/13/21 01:00 09/13/21 01:01 Temperature Pulse Rate 80 69 69 Respiratory Rate Blood Pressure 131/77 124/59 L Pulse Oximetry 98 97 98 09/13/21 01:30 09/13/21 01:46 09/13/21 03:07 Temperature Pulse Rate 78 87 76 Respiratory Rate 20 12 15 Blood Pressure 123/64 126/62 124/67 Pulse Oximetry 99 99 97 MDM - Abdominal Pain Lab Data Result diagrams: 09/12/21 23:59 09/12/21 23:59 Labs: Lab Results 09/12/21 09/12/21 09/13/21 Range/Units 23:59 23:59 02:30 WBC 10.9 (4.5-11.0) X10^3/uL RBC 4.86 (4.0-5.2) X10^6/uL Hgb 12.2 (12.0-16.0) g/dL Hct 37.0 (36-46) % MCV 76.1 L (80-100) fL MCH 25.1 L (26-34) PG MCHC 33.0 (30-36) % RDW 15.0 H (11.6-14.8) % Plt Count 291 (150-400) X10^3/uL Neut % (Auto) 63.0 (50-75) % Lymph % (Auto) 26.4 (25-40) % [place] % (Auto) 9.0 (3-14) % Eos % (Auto) 1.0 L (2-4) % Baso % (Auto) 0.6 (0-2) % Neut # (Auto) 6900 (5406-5858) /uL Lymph # (Auto) 2900 (9836-9137) /uL [place] # (Auto) 1000 H (0-900) /uL Eos # (Auto) 100 (0-450) /uL Baso # (Auto) 100 (0-100) /uL Sodium 139 (137-145) mmol/L Potassium 4.1 (3.4-5.1) mmol/L Chloride 107 (98-107) mmol/L Carbon Dioxide 21 L (22-32) mmol/L BUN 8 (7-17) mg/dL Creatinine 0.47 L (0.52-1.04) mg/dL Estimated GFR > 60.0 (>60) mL/min BUN/Creatinine Ratio 17.0 (6-22) Glucose 117 H (70-100) mg/dL Calcium 9.7 (8.4-10.2) mg/dL Total Bilirubin 0.4 (0.2-1.3) mg/dL AST 32 (14-36) IU/L ALT 19 (<35) IU/L Alkaline Phosphatase 53 (38-126) U/L Total Protein 7.7 (6.3-8.2) g/dL Albumin 4.6 (3.5-5.0) g/dL Globulin 3.1 (1.7-4.1) g/dL Albumin/Globulin Ratio 1.5 (1.0-2.8) Lipase 117 (23-300) U/L Urine RBC None seen (0-5/HPF) Urine WBC 1-5/hpf (0-5/HPF) Ur Squamous Epith Cells 1-5 /hpf (0-5/HPF) Urine Bacteria Few (2-10) H (None) Ur Culture Indicated? Specimen cultured Point of care testing: Point of Care Testing Test Results Negative Urine Dip Bedside Urine Glucose Negative Bedside Urine Bilirubin - Negative Bedside Urine Ketone - Negative Urine Specific Aneta 1.02 Bedside Urine Occult Blood - Negative Bedside Urine pH 5.5 Bedside Urine Protein - Negative Bedside Urine Urobilinogen - Negative Bedside Urine Nitrite - Negative Bedside Urine Leukocytes +/- 15 Esterase Imaging Data US - abdomen: Radiologist's Impression: Launch?Image [address] [address] Ultrasound Report Signed Patient: Olivier Veloz MR#: [id number] : 2000 Acct:[id number] Age/Sex: 21 / F Date of Service: 09/13/21 Loc: ED Accession Number: [id number] ?? Procedure: US abdomen limited Ordering Provider: Екатерина Pagan D.O. PROCEDURE:? US ABDOMEN LIMITED ? INDICATIONS:? RUQ PAIN ? TECHNIQUE:? Real-time scanning was performed of the abdominal and retroperitoneal organs, with image documentation.? ? COMPARISON:? [facility], US ABDOMEN LIMITED, 12/01/2019, 16:27. ? FINDINGS: ? Liver:? Homogeneous echotexture.? No evidence of focal mass lesion.? No intra hepatic biliary ductal dilatation ? Gallbladder:? Sonolucent without cholelithiasis.? No gallbladder wall thickening. No pericholecystic fluid or Tineo's sign. ? Common Bile Duct:? 4.6 mm. ? Pancreas:? Unremarkable as visualized ? IMPRESSION: ? 1.? Unremarkable right upper quadrant ultrasound ? Approved by: Booker Hernández M.D. on 09/13/2021 at 0:12? CT scan - abdomen/pelvis: Radiologist's Impression: [address] [address] [address] Scan Report Signed Patient: Olivier Veloz MR#: [id number] : 2000 Acct:[id number] Age/Sex: 21 / F Date of Service: 09/13/21 Loc: ED Accession Number: [id number] ?? Procedure: CT abdomen pelvis w con Ordering Provider: Екатерина Pagan D.O. PROCEDURE:? CT ABDOMEN PELVIS W CON ? INDICATIONS:? abdominal pain ? TECHNIQUE:? After the administration of intravenous contrast, axial sections acquired from the lung bases to the pubic symphysis.? Coronal and sagittal reformats were performed.? For radiation dose reduction, the following was used:? automated exposure control, adjustment of mA and/or kV according to patient size.? ? COMPARISON:? None. ? FINDINGS: ? Lower thorax: The lung bases are clear.? Heart size normal. No hiatal hernia. ? Liver:? Normal in size and attenuation. No contour deformity present. ? Biliary system:? No calcified cholelithiasis or pericholecystic inflammation. No intra or extrahepatic bile duct dilatation. ? Pancreas:? Unremarkable without mass or inflammation evident. ? Spleen:? Normal in size and density. ? Adrenals:? Normal morphology and density. ? Reproductive system:? Retroverted uterus ? Urinary system:? Normal renal size and attenuation. No renal calculi, hydronephrosis, or solid mass present.? Urinary bladder unremarkable. ? Gastrointestinal system:? The bowel is unremarkable without evidence of bowel obstruction or inflammation. The stomach appears unremarkable. ? Appendix:? No findings to suggest acute appendicitis. ? Peritoneal spaces:? No mesenteric or retroperitoneal adenopathy.? No free air.? No free fluid.? ? Vasculature:? The IVC, aorta and iliac vasculature are unremarkable. ? Abdominal wall:? Abdominal wall intact without evidence of ventral or inguinal hernias. ? Musculoskeletal:? Normal bone mineralization.? No acute fractures.? ? IMPRESSION: ? 1. Unremarkable CT abdomen and pelvis.? No acute findings. ? ? Approved by: Booker Hernández M.D. on 09/13/2021 at 1:20? ECG Data Attestation: I personally reviewed and interpreted this ECG as follows: Prior ECG tracings: available for review Interpretation: NSR, rate of 75, pr of 136, qrs of 92, qtc 419. No acute ST changes appreciated. MDM Narrative Medical decision making narrative: This is a 21-year-old female comes emergency department complaint of abdominal pain with sudden onset while eating. She has had episodes before she states typically when eating. She is quite uncomfortable on exam and tender particularly in the right upper quadrant. Ultrasound was negative, CT abdomen was upheld obtained which is also negative. Patient feels much better after Toradol and Zofran. Urine has some leukocyte esterase but this seems atypical for the cause of her symptoms so waiting culture before starting antibiotics. Patient feels much better we discussed would probably benefit from being on a PPI. Follow up with her physician for possibly EGD and/or HIDA scan. All questions answered patient feels comfortable with this plan. Discharge Plan Departure Patient Disposition: Home Clinical Impression: Abdominal pain Instructions: DI for Abdominal Pain-Adult Activity Restrictions/Additional Instructions: Follow-up with your physician for recheck. Your labs, ultrasound and CT did not show any clear causes of your pain. I would recommend taking medication daily to see if this helps and sometimes will be helpful if there is some inflammation to the lining of your stomach or ulcer. You can also discussed with your physician if it would be appropriate to perform a HIDA scan which can evaluate the effectiveness of your gallbladder. It may be helpful to keep a log to see if any certain foods particularly fatty foods or acidic or spicy foods worsen your symptoms and avoid these if they do. Take Pepcid 1 tablet daily for the next 4 weeks. Prescription sent to [facility] pharmacy. It is also available over the counter. Please return for fevers, new chest pain, abdominal pain, vomiting, fevers, black or bloody stools, difficulty with bowel movements, difficulty with urination, passing out or other new or concerning symptoms Prescriptions: New famotidine [Pepcid] 40 mg tablet 40 mg PO DAILY Qty: 30 RF: 0 famotidine [Pepcid] 40 mg tablet 40 mg PO DAILY Qty: 30 RF: 0 No Action prenat.vits,swapna,[id number] Tablet 1 tab PO DAILY RF: 0 Referrals: Dori Montes DO [Primary Care Provider] -
[2021-09-13] MEDS: SODIUM CHLORIDE 0.9% 1,000 ML 1000 ML IV (00:28)
[2021-09-13] MEDS: KETOROLAC 30 MG/ML VIAL IV (00:29)
--- NOTE | 2021-09-13 00:33 | DI.CT.S_ITS ---
PROCEDURE: CT ABDOMEN PELVIS W CON INDICATIONS: abdominal pain TECHNIQUE: After the administration of intravenous contrast, axial sections acquired from the lung bases to the pubic symphysis. Coronal and sagittal reformats were performed. For radiation dose reduction, the following was used: automated exposure control, adjustment of mA and/or kV according to patient size. COMPARISON: None. FINDINGS: Lower thorax: The lung bases are clear. Heart size normal. No hiatal hernia. Liver: Normal in size and attenuation. No contour deformity present. Biliary system: No calcified cholelithiasis or pericholecystic inflammation. No intra or extrahepatic bile duct dilatation. Pancreas: Unremarkable without mass or inflammation evident. Spleen: Normal in size and density. Adrenals: Normal morphology and density. Reproductive system: Retroverted uterus Urinary system: Normal renal size and attenuation. No renal calculi, hydronephrosis, or solid mass present. Urinary bladder unremarkable. Gastrointestinal system: The bowel is unremarkable without evidence of bowel obstruction or inflammation. The stomach appears unremarkable. Appendix: No findings to suggest acute appendicitis. Peritoneal spaces: No mesenteric or retroperitoneal adenopathy. No free air. No free fluid. Vasculature: The IVC, aorta and iliac vasculature are unremarkable. Abdominal wall: Abdominal wall intact without evidence of ventral or inguinal hernias. Musculoskeletal: Normal bone mineralization. No acute fractures. IMPRESSION: 1. Unremarkable CT abdomen and pelvis. No acute findings. Approved by: Booker Hernández M.D. on 09/13/2021 at 1:20
[2021-09-13 01:05] LABS: Add Manual Diff / Slide Review NO; Basophils Absolute Auto 100 /uL (0-100); Basophils Percent Auto 0.6 % (0-2); Eosinophils Absolute Auto 100 /uL (0-450); Hemoglobin 12.2 g/dL (12.0-16.0); Lymphocytes Absolute Auto 2900 /uL (1100-4500); Lymphocytes Percent Auto 26.4 % (25-40); Mean Corpuscular Hemoglobin 25.1 PG (26-34); Mean Corpuscular Volume 76.1 fL (80-100); Monocytes Absolute Auto 1000 /uL (0-900); Neutrophils Absolute Auto 6900 /uL (1500-7000); Platelet Count 291 X10^3/uL (150-400); Red Blood Cell Count 4.86 X10^6/uL (4.0-5.2); White Blood Cell Count 10.9 X10^3/uL (4.5-11.0)
[2021-09-13 01:24] LABS: Alanine Aminotransferase 19 IU/L (<35); Albumin 4.6 g/dL (3.5-5.0); Albumin Globulin Ratio 1.5 (1.0-2.8); Alkaline Phosphatase 53 U/L (38-126); Aspartate Aminotransferase 32 IU/L (14-36); Bilirubin Total 0.4 mg/dL (0.2-1.3); Blood Urea Nitrogen 8 mg/dL (7-17); Calcium 9.7 mg/dL (8.4-10.2); Carbon Dioxide 21 mmol/L (22-32); Chloride 107 mmol/L (98-107); Estimated Glomerular Filt Rate > 60.0 mL/min (>60); Globulin 3.1 g/dL (1.7-4.1); Glucose 117 mg/dL (70-100); Lipase 117 U/L (23-300); Potassium 4.1 mmol/L (3.4-5.1); Sodium 139 mmol/L (137-145); Total Protein 7.7 g/dL (6.3-8.2)
[2021-09-13 01:25] LABS: HEMOLYSIS 52 (0-50)
[2021-09-13 03:10] LABS: Bacteria Urine Few (2-10); Culture Indicated Urine Specimen Cultured; RBC Urine None Seen (0-5/HPF); Squamous Epithelial Cell Urine 1-5 /HPF (0-5/HPF); WBC Urine 1-5/HPF (0-5/HPF)
== END 2021-09-13 03:14 | disposition home or self-care (01) ==
PROVIDERS: Emergency Provider Emergency Medicine; PCP Family Medicine
DX: R10.11 Right upper quadrant pain (principal); R11.2 Nausea with vomiting, unspecified
CPT/HCPCS: 36415; 74177; 76705; 80053; 81003; 81015; 81025; 83690; 85025; 87086; 93010; 96361; 96374; 96375; 99284; J1885; J2405; Q9967

== ENCOUNTER 2022-02-20 04:02 | Emergency (ER) | payer OTHER, MEDICAID, SELFPAY ==
[2022-02-20 04:05] VITALS: BP 119/79; PULSE 84; RESP 20; TEMP 36.6; O2SAT 100
--- NOTE | 2022-02-20 04:10 | ED_ITS ---
HPI - General Adult General Chief complaint: Abdominal Pain Stated complaint: pain rt side, cant pee Time Seen by Provider: 02/20/22 04:05 Source: patient Mode of arrival: Ambulatory History of Present Illness HPI narrative: Patient is a 21-year-old female who is here for evaluation of right-sided abdominal pain and the inability to urinate. She states the symptoms started overnight. Her young child woke up which caused the patient to wake up and sometime after that is when she developed pain. Has never had a kidney stone before. Does get somewhat worse with touching the area. No fevers. No vomiting. No change in bowel habits. She also states that she is tried to urinate but has been unable to. Related Data Home Medications Medication Instructions Recorded Confirmed prenat.vits,swapna,odi-gicu-deolg 1 tab PO DAILY 10/25/19 01/16/20 Previous Rx's Medication Instructions Recorded famotidine 40 mg tablet (Pepcid) 40 mg PO DAILY #30 tab 09/13/21 famotidine 40 mg tablet (Pepcid) 40 mg PO DAILY #30 tab 09/13/21 Allergies Allergy/AdvReac Type Severity Reaction Status Date / Time bee venom protein (honey bee) Allergy Hives Verified 01/16/20 09:34 Penicillins AdvReac Unknown Verified 01/16/20 09:34 red dye AdvReac Mood swings Verified 01/16/20 09:34 Review of Systems Constitutional Constitutional: Reports as per HPI and Reports system reviewed and no additional complaints, except as documented Gastrointestinal Gastrointestinal: Reports as per HPI and Reports system reviewed and no additional complaints, except as documented Genitourinary Genitourinary: Reports system reviewed and no additional complaints, except as documented and Reports as per HPI Musculoskeletal Musculoskeletal: Reports system reviewed and no additional complaints, except as documented Patient History Medical History Anxiety (~2005) Foot pain (~2006) Seizure disorder Surgical History H/O foot surgery Social History marital status: unmarried,single household members: family (Father, mother, siblings.) lives independently: Yes occupational status: unemployed do you feel safe at home: Yes Smoking Status: Never smoker substance use type: does not use Type(s) of exercise: walking Smoking Status: Never smoker alcohol intake frequency: holidays/special occasions only Substance Use Type: does not use Exam Initial Vital Signs Initial Vital Signs: Vital Signs Temperature 98 F 02/20/22 04:05 Pulse Rate 84 02/20/22 04:05 Respiratory Rate 20 02/20/22 04:05 Blood Pressure 119/79 02/20/22 04:05 Pulse Oximetry 100 02/20/22 04:05 Resp Effort & Inspection: normal respiratory effort Cardio Rate: regular rate GI Inspection: non-distended Palpation: soft, No firm, No guarding and tender Back/Spine/Pelvis Back: CVA tenderness right Skin General: no rashes or lesions noted Extrem General: normal to inspection Course Orders Ordered: ED Orders 02/20/22 04:30 Basic Metabolic Panel Stat Complete Blood Count AUTO DIFF Stat 02/20/22 04:34 CT kidney ureter bladder (KUB) Stat Vital Signs Vital signs: Vital Signs - 8 hr 02/20/22 04:05 02/20/22 05:25 Temperature 98 F Pulse Rate 84 75 Respiratory Rate 20 15 Blood Pressure 119/79 109/73 Pulse Oximetry 100 97 Medical Decision Making Lab Data Lab results reviewed: Yes I reviewed the patient's lab results. Result diagrams: 02/20/22 04:30 02/20/22 04:30 Labs: Lab Results 02/20/22 02/20/22 Range/Units 04:30 04:30 WBC 9.6 (4.5-11.0) X10^3/uL RBC 5.01 (4.0-5.2) X10^6/uL Hgb 12.7 (12.0-16.0) g/dL Hct 39.5 (36-46) % MCV 78.9 L (80-100) fL MCH 25.3 L (26-34) PG MCHC 32.1 (30-36) % RDW 15.3 H (11.6-14.8) % Plt Count 235 (150-400) X10^3/uL Neut % (Auto) 61.0 (50-75) % Lymph % (Auto) 27.3 (25-40) % [place] % (Auto) 10.0 (3-14) % Eos % (Auto) 1.2 L (2-4) % Baso % (Auto) 0.5 (0-2) % Neut # (Auto) 5900 (6478-7788) /uL Lymph # (Auto) 2600 (2299-6287) /uL [place] # (Auto) 1000 H (0-900) /uL Eos # (Auto) 100 (0-450) /uL Baso # (Auto) 0 (0-100) /uL Sodium 138 (137-145) mmol/L Potassium 4.0 (3.4-5.1) mmol/L Chloride 104 (98-107) mmol/L Carbon Dioxide 24 (22-32) mmol/L BUN 9 (7-17) mg/dL Creatinine 0.54 (0.52-1.04) mg/dL Estimated GFR > 60 (>60) mL/min BUN/Creatinine Ratio 16.7 (6-22) Glucose 100 (70-100) mg/dL Calcium 9.0 (8.4-10.2) mg/dL Point of Care Testing Test Results Negative Urine Dip Bedside Urine Glucose Negative Bedside Urine Bilirubin + 1 Bedside Urine Ketone - Negative Urine Specific [place] 1.030 Bedside Urine Occult Blood - Negative Bedside Urine pH 6 Bedside Urine Protein +/- 15 Bedside Urine Urobilinogen - Negative Bedside Urine Nitrite - Negative Bedside Urine Leukocytes - Negative Esterase Point of care testing: Point of Care Testing Test Results Negative Urine Dip Bedside Urine Glucose Negative Bedside Urine Bilirubin + 1 Bedside Urine Ketone - Negative Urine Specific [place] 1.030 Bedside Urine Occult Blood - Negative Bedside Urine pH 6 Bedside Urine Protein +/- 15 Bedside Urine Urobilinogen - Negative Bedside Urine Nitrite - Negative Bedside Urine Leukocytes - Negative Esterase Imaging Data CT scan - abdomen/pelvis: Radiologist's Impression: No evidence of acute colitis, diverticulitis, bowel obstruction or obstructive uropathy. Appendix was not visualized Few prominent mesenteric lymph nodes within the right lower quadrant. This is nonspecific finding but can be seen in the setting of mesenteric adenitis MDM Narrative Medical decision making narrative: Urinalysis shows no signs of infection. test negative. Urine is unremarkable. CT scan abdomen pelvis does not show any surgical pathology. Does have enlarged lymph nodes in the right side consistent with mesenteric adenitis in this does correspond to her presenting symptoms. No indication for antibiotics. No indication for surgical consultation. I did discuss this with the patient. Patient is also not retaining urine. She was given return precautions and follow-up instructions. She expressed understanding and agreement. Discharge Plan Departure Patient Disposition: Home Clinical Impression: Mesenteric adenitis Instructions: DI for Mesenteric Adenitis-Adult Activity Restrictions/Additional Instructions: You can take Tylenol/ibuprofen for the abdominal discomfort. The symptoms should improve in the next couple days. No restrictions on your activities. Contact your primary provider for follow-up. Return to the emergency department for any new or worsening symptoms. Prescriptions: No Action prenat.vits,swapna,mko-qyko-bwtxg Tablet 1 tab PO DAILY 0RF famotidine [Pepcid] 40 mg tablet 40 mg PO DAILY Qty: 30 0RF famotidine [Pepcid] 40 mg tablet 40 mg PO DAILY Qty: 30 0RF Referrals: Dori Montes DO [Primary Care Provider] -
--- NOTE | 2022-02-20 04:34 | DI.CT.S_ITS ---
PROCEDURE: CT KIDNEY URETER BLADDER (KUB) INDICATIONS: Right side flank pain eval for stone TECHNIQUE: Axial sections were acquired from the lung bases to the pubic symphysis. Coronal and sagittal reformats were performed. For radiation dose reduction, the following was used: automated exposure control, adjustment of mA and/or kV according to patient size. COMPARISON: [facility], CT, CT ABDOMEN PELVIS W CON, 09/13/2021, 1:35. FINDINGS: Image quality: Excellent. Lung bases: Unremarkable. Heart: No significant findings. URINARY: Right Kidney: No stones or hydronephrosis. Right Ureter: No hydroureter. Left Kidney: No stones or hydronephrosis. Left Ureter: No hydroureter. Bladder: Normal wall thickness. No stones. ABDOMEN: Liver: Unremarkable. Gallbladder: Unremarkable. Biliary ducts: Unremarkable. Pancreas: Unremarkable. Spleen: Unremarkable. Adrenal Glands: Unremarkable. Stomach and Bowel: Stomach, small bowel loops, and colon are unremarkable. The appendix is normal in caliber. Appendix contains a 2 millimeter appendicoliths. Peritoneum: No abnormal intraperitoneal fluid. No free air. Ventral Wall: No hernia. Abdominal Nodes: No enlarged retroperitoneal or mesenteric lymph nodes. Vessels: Aorta and inferior vena cava are normal in size. PELVIS: Pelvic Organs: Unremarkable. Pelvic Nodes: Unremarkable. Miscellaneous: No inguinal hernias are seen. Bones: Unremarkable. IMPRESSION: 1. No renal stone or hydronephrosis. 2. Appendix is normal. 3. Moderate fecal loading involving the right colon suggestive of constipation. Dictated by: Maci Tidwell MD, PhD on 02/20/2022 at 7:50 Approved by: Maci Tidwell MD, PhD on 02/20/2022 at 7:54
[2022-02-20 04:40] LABS: Add Manual Diff / Slide Review NO; Basophils Absolute Auto 0 /uL (0-100); Basophils Percent Auto 0.5 % (0-2); Eosinophils Absolute Auto 100 /uL (0-450); Eosinophils Percent Auto 1.2 % (2-4); Hematocrit 39.5 % (36-46); Hemoglobin 12.7 g/dL (12.0-16.0); Lymphocytes Absolute Auto 2600 /uL (1100-4500); Lymphocytes Percent Auto 27.3 % (25-40); Mean Corpuscular HGB Conc 32.1 % (30-36); Mean Corpuscular Hemoglobin 25.3 PG (26-34); Mean Corpuscular Volume 78.9 fL (80-100); Monocytes Absolute Auto 1000 /uL (0-900); Neutrophils Absolute Auto 5900 /uL (1500-7000); Platelet Count 235 X10^3/uL (150-400); Red Blood Cell Count 5.01 X10^6/uL (4.0-5.2); Red Cell Distribution Width 15.3 % (11.6-14.8); White Blood Cell Count 9.6 X10^3/uL (4.5-11.0)
[2022-02-20 04:48] LABS: BUN Creatinine Ratio 16.7 (6-22); Blood Urea Nitrogen 9 mg/dL (7-17); Carbon Dioxide 24 mmol/L (22-32); Chloride 104 mmol/L (98-107); Estimated Glomerular Filt Rate > 60 mL/min (>60); Glucose 100 mg/dL (70-100); HEMOLYSIS < 15 (0-50); Sodium 138 mmol/L (137-145)
[2022-02-20 05:25] VITALS: BP 109/73; PULSE 75; RESP 15; O2SAT 97
== END 2022-02-20 05:26 | disposition home or self-care (01) ==
PROVIDERS: Emergency Provider Emergency Medicine; PCP Family Medicine
DX: I88.0 Nonspecific mesenteric lymphadenitis (principal)
CPT/HCPCS: 36415; 74176; 80048; 81003; 81025; 85025; 99284

== ENCOUNTER → 2022-03-24 12:04 | Outpatient (CLI) | payer OTHER, MEDICAID, SELFPAY ==
[2022-03-24 13:15] LABS: Add Manual Diff / Slide Review NO; Basophils Absolute Auto 0 /uL (0-100); Basophils Percent Auto 0.5 % (0-2); Eosinophils Absolute Auto 100 /uL (0-450); Eosinophils Percent Auto 0.9 % (2-4); Hematocrit 38.1 % (36-46); Hemoglobin 12.7 g/dL (12.0-16.0); Lymphocytes Absolute Auto 2000 /uL (1100-4500); Lymphocytes Percent Auto 22.8 % (25-40); Mean Corpuscular HGB Conc 33.4 % (30-36); Mean Corpuscular Hemoglobin 26.2 PG (26-34); Mean Corpuscular Volume 78.4 fL (80-100); Monocytes Absolute Auto 800 /uL (0-900); Monocytes Percent Auto 8.5 % (3-14); Neutrophils Absolute Auto 6000 /uL (1500-7000); Neutrophils Percent Auto 67.3 % (50-75); Platelet Count 249 X10^3/uL (150-400); Red Blood Cell Count 4.87 X10^6/uL (4.0-5.2); Red Cell Distribution Width 14.9 % (11.6-14.8); White Blood Cell Count 8.9 X10^3/uL (4.5-11.0)
[2022-03-24 13:43] LABS: Alanine Aminotransferase 17 IU/L (<35); Albumin 4.8 g/dL (3.5-5.0); Albumin Globulin Ratio 1.6 (1.0-2.8); Alkaline Phosphatase 62 U/L (38-126); Aspartate Aminotransferase 24 IU/L (14-36); BUN Creatinine Ratio 18.2 (6-22); Bilirubin Total 0.6 mg/dL (0.2-1.3); Blood Urea Nitrogen 10 mg/dL (7-17); Calcium 9.6 mg/dL (8.4-10.2); Carbon Dioxide 24 mmol/L (22-32); Chloride 105 mmol/L (98-107); Estimated Glomerular Filt Rate > 60 mL/min (>60); Glucose 95 mg/dL (70-100); HEMOLYSIS < 15 (0-50); Lipase 82 U/L (23-300); Potassium 4.5 mmol/L (3.4-5.1); Sodium 137 mmol/L (137-145); Total Protein 7.8 g/dL (6.3-8.2)
[2022-03-25 06:37] LABS: Interpretation Positive (Negative)
== END ==
PROVIDERS: PCP Family Medicine; Referring Provider Family Medicine; Visit Provider Family Medicine
DX: F98.8 Other specified behavioral and emotional disorders with onset usually occurring in childhood and adolescence (principal); G89.29 Other chronic pain; R10.11 Right upper quadrant pain
CPT/HCPCS: 36415; 80053; 83013; 83690; 85025

== ENCOUNTER → 2022-04-03 08:01 | Outpatient (CLI) | payer OTHER, MEDICAID, SELFPAY ==
--- NOTE | 2022-04-03 08:02 | DI.NM.S_ITS ---
PROCEDURE: NM HIDA WITH CCK PHARMACEUTICAL: 5.5 mCi Tc-99m mebrofenin IV; 1.6 mcg CCK IV. INDICATIONS: Chronic RUQ pain TECHNIQUE: Following intravenous administration of Tc-99m mebrofenin, sequential anterior abdominal images were obtained. To evaluate the contractile response of the gallbladder in response to Cholecystokinin (CCK), sincalide (0.02 ?g/kg) was administered by slow intravenous infusion approximately 60 minutes after the administration of the radiopharmaceutical. Sequential imaging was continued for 30 minutes after the start of CCK infusion. Gallbladder ejection fraction was calculated. COMPARISON: [facility], ABDOMEN LIMITED, 09/13/2021, 0:28. FINDINGS: Biliary scan: There is normal tracer uptake and excretion by the liver. There is normal visualization of the intrahepatic ducts, common bile duct, and gallbladder. There is normal tracer transit into the duodenum. CCK stimulation: There is normal contractile response of the gallbladder to CCK infusion. The calculated gallbladder ejection fraction is 68%; normal values are above 35%. IMPRESSION: 1. Normal filling of gallbladder. No evidence for acute cholecystitis. 2. Normal contractile response of gallbladder to CCK stimulation. Dictated by: Minesh Billy M.D. on 04/03/2022 at 10:35 Approved by: Minesh Billy M.D. on 04/03/2022 at 10:36
== END ==
PROVIDERS: PCP Family Medicine; Referring Provider Family Medicine; Visit Provider Family Medicine
DX: R10.11 Right upper quadrant pain (principal); G89.29 Other chronic pain; F98.8 Other specified behavioral and emotional disorders with onset usually occurring in childhood and adolescence
CPT/HCPCS: 78227; A9537; J2805

== ENCOUNTER 2022-12-09 19:40 | Emergency (ER) | payer OTHER, MEDICAID, SELFPAY ==
[2022-12-09 19:57] VITALS: BP 114/69; PULSE 76; RESP 18; TEMP 36.6; O2SAT 98
--- NOTE | 2022-12-09 20:02 | DI.RAD.S_ITS ---
PROCEDURE: XR LUMBAR SPINE MIN 4V INDICATIONS: any movement hurts low back,no known injury TECHNIQUE: 5 views of the lumbar spine were acquired, including bilateral oblique views. COMPARISON: None. FINDINGS: Bones: 5 nonrib-bearing vertebrae are present. There is minimal retrolisthesis at L2-L3. Alignment otherwise appears preserved. The disc spaces also appear preserved. No vertebral body compression fractures. No suspicious bony lesions. Soft tissues: Overlying bowel gas pattern is normal. No suspicious soft tissue calcifications. Oblique images: No pars defects. IMPRESSION: 1. No fracture or subluxation. 2. No pars defects. Dictated by: Tereso Prakash M.D. on 12/09/2022 at 22:00 Approved by: Tereso Prakash M.D. on 12/09/2022 at 22:01
--- NOTE | 2022-12-09 23:45 | ED.BACK ---
HPI - Back Pain/Injury General Chief Complaint: Back Pain/Injury Stated Complaint: Bump on spine, Can't bend down/move Time Seen by Provider: 12/09/22 23:34 Source: patient History of Present Illness HPI Narrative: Patient is a 22-year-old female with history of ADHD presenting with back pain and right leg numbness ongoing for the last 2-3 days. She says it hurts every time she moves. She has been taking Tylenol and ibuprofen helps a little bit. Denies any loss urine or stool. No fevers. Related Data Previous Rx's Medication Instructions Recorded alprazolam 0.25 mg tablet 0.25 mg PO BID PRN anxiety #14 tabs 09/15/22 escitalopram oxalate 10 mg tablet 10 mg PO DAILY #60 tabs 09/15/22 (Lexapro) dextroamphetamine-amphetamine ER 10 mg PO DAILY #60 caps 10/29/22 10 mg 24hr capsule,extend release (Adderall XR) cyclobenzaprine 5 mg tablet 5 mg PO TID PRN muscle spasm #10 12/10/22 tabs Allergies Allergy/AdvReac Type Severity Reaction Status Date / Time bee venom protein (honey bee) Allergy Hives Verified 11/06/22 15:35 Penicillins AdvReac Unknown Verified 11/06/22 15:35 red dye AdvReac Mood swings Verified 11/06/22 15:35 Review of Systems Review of Systems ROS Unobtainable: All systems reviewed & are unremarkable except as noted in HPI and below Patient History Medical History Anxiety (~2005) Bigeminy (~1998) Foot pain (~2006) Seizure disorder Surgical History Anesthesia H/O foot surgery Family History Grandfather Cancer Diabetes mellitus Grandmother Stroke Social History marital status: unmarried,single household members: family (Father, mother, siblings.) lives independently: Yes occupational status: unemployed do you feel safe at home: Yes Smoking Status: Never smoker substance use type: does not use Type(s) of exercise: walking Smoking Status: Never smoker alcohol intake frequency: holidays/special occasions only Substance Use Type: does not use Exam Initial Vital Signs Initial Vital Signs: Vital Signs Temperature 97.9 F 12/09/22 19:57 Pulse Rate 76 12/09/22 19:57 Respiratory Rate 18 12/09/22 19:57 Blood Pressure 114/69 12/09/22 19:57 Pulse Oximetry 98 12/09/22 19:57 Oxygen Delivery Method 12/09/22 19:57 GENERAL: Alert 22-year-old female lying flat HEENT: Head atraumatic,EOMI, pupils reactive, face symmetric, moist mucous membranes CARDIOVASCULAR: Regular rate and rhythm without murmurs, rubs or gallops. RESPIRATORY: Breath sounds equal bilaterally, no wheezes rales or rhonchi. ABDOMEN: Soft, nontender. Normoactive bowel sounds all 4 quadrants. No guarding or rebound. BACK: No vertebral tenderness paraspinal tenderness thoracic and lumbar no obvious swelling appreciated. Difficult to lift up right leg secondary to back pain EXTREMITIES: Normal range of motion, no clubbing or edema. Neurovascularly intact NEUROLOGICAL: Alert and oriented x4. SKIN: Warm, dry, no laceration, no petechiae, no rashes or lesions. Course Orders Ordered: Discontinued Medications Cyclobenzaprine HCl (Cyclobenzaprine 10 Mg Prepack) 1 bottle MISC SEEINSTR ONE Stop: 12/10/22 00:00 Last Admin: 12/10/22 00:26 Dose: 1 bottle Documented By: TAHMNIA Ketorolac Tromethamine (Ketorolac 30 Mg/Ml Vial) 30 mg IM NOW ONE Stop: 12/10/22 00:00 Last Admin: 12/10/22 00:16 Dose: 30 mg Documented By: TAHMINA Vital Signs Vital signs: Vital Signs - 8 hr 12/10/22 00:28 Temperature 97.3 F L Pulse Rate 68 Respiratory Rate 16 Blood Pressure 118/64 Pulse Oximetry 99 Oxygen Delivery Method Room Air MDM - Back Pain/Injury MDM Narrative Medical decision making narrative: Healthy 22-year-old female presents with back pain with right leg numbness tingling without specific injury. She has no cauda equina symptoms. Not history of diabetes or IV drug user. I suspect this is more musculoskeletal related. At this time no need for MRI. She he is given Toradol here in the ED along with muscle relaxer cyclobenzaprine. She is not wanting anything stronger. We discussed conservative treatment and when to return to the ED. Discharge Plan Departure Patient Disposition: Home Clinical Impression: Acute back pain with sciatica Instructions: DI for Back Pain With Sciatica Activity Restrictions/Additional Instructions: *You have been diagnosed with back pain with sciatica *What to do: At this time increase activity as tolerated no strenuous activity however light activity and stretching is encouraged. May try heating pad as needed at low heat *Continue to take medications as directed --> SENT TO [facility] Motrin 600 mg every 6 hours if needed for [id number] Tylenol 1000 mg every 6 hours if needed for [id number] pain Flexeril 5 mg every 8 hours only if needed for muscle spasm this can cause drowsiness do not take if you need to be awake and function *Follow up with your primary care provider in 2-3 days or call [phone] *Return to ER if you should have increasing leg weakness loss of urine or stool, worsening pain or any new, worsening or concerning symptoms Prescriptions: New cyclobenzaprine 5 mg tablet 5 mg PO TID PRN (Reason: muscle spasm) Qty: 10 0RF No Action dextroamphetamine-amphetamine [Adderall XR] 10 mg capsule,extended release 24hr 10 mg PO DAILY Qty: 60 0RF escitalopram oxalate [Lexapro] 10 mg tablet 10 mg PO DAILY Qty: 60 3RF alprazolam 0.25 mg tablet 0.25 mg PO BID PRN (Reason: anxiety) Qty: 14 0RF Referrals: Jadiel Ware MD [Primary Care Provider] - Stand Alone Forms: Patient Portal/API
[2022-12-10] MEDS: KETOROLAC 30 MG/ML VIAL IM (00:16)
[2022-12-10] MEDS: CYCLOBENZAPRINE 10 MG PREPACK 1 BOTTLE MISC (00:26)
[2022-12-10 00:28] VITALS: BP 118/64; PULSE 68; RESP 16; TEMP 36.3; O2SAT 99
== END 2022-12-10 00:29 | disposition home or self-care (01) ==
PROVIDERS: Emergency Provider Emergency Medicine; PCP Family Medicine
DX: M54.41 Lumbago with sciatica, right side (principal)
CPT/HCPCS: 72110; 96372; 99283; J1885

== ENCOUNTER 2023-02-01 11:02 | Emergency (ER) | payer OTHER, MEDICAID, SELFPAY ==
[2023-02-01 11:05] VITALS: BP 110/63; PULSE 88; RESP 20; TEMP 36.9; O2SAT 98; BMI 26.7
--- NOTE | 2023-02-01 12:23 | ED.ALLEREA ---
HPI - Allergic Reaction <Real Guevara PA-C - Last Filed: 02/01/23 18:05> General Chief complaint: Allergic Reaction Stated complaint: allergic reaction to meds Time Seen by Provider: 02/01/23 12:01 Source: patient Mode of arrival: Ambulatory History of Present Illness HPI narrative: This is a 22-year-old female presents emergency department due to a rash as well as some ?throat tightness? onset last night. She states that she is been taking her escitalopram routinely and suspects that she may be having allergic reactions to this. She states that she is been taking every day this week which may be causing her symptoms. Denies any nausea, vomiting, chest pain, abdominal pain, or any other concerning signs or symptoms. The rash is primarily affecting her left side of her neck. She states that she took a Benadryl at 9:30 a.m. this morning with moderate relief. Related Data Previous Rx's Medication Instructions Recorded cyclobenzaprine 5 mg tablet 5 mg PO TID PRN muscle spasm #10 12/10/22 tabs escitalopram oxalate 20 mg tablet 20 mg PO DAILY #90 tabs 12/10/22 (Lexapro) alprazolam 0.25 mg tablet 0.25 mg PO BID PRN anxiety #14 tabs 01/14/23 dextroamphetamine-amphetamine ER 20 mg PO DAILY #30 caps 01/19/23 20 mg 24hr capsule,extend release (Adderall XR) diphenhydramine HCl 25 mg capsule 25 mg PO Q6H 5 days #20 caps 02/01/23 (Benadryl) prednisone 20 mg tablet 20 mg PO BID 5 days #10 tabs 02/01/23 Allergies Allergy/AdvReac Type Severity Reaction Status Date / Time bee venom protein (honey bee) Allergy Hives Verified 02/01/23 11:21 Penicillins AdvReac Unknown Verified 02/01/23 11:21 red dye AdvReac Mood swings Verified 02/01/23 11:21 Review of Systems <Real Guevara PA-C - Last Filed: 02/01/23 18:05> Review of Systems Narrative: GENERAL: Denies chills, fatigue, malaise, fever, sweats. HEENT: Reports ?throat tightness? RESPIRATORY: Denies dyspnea, cough, wheezing, hemoptysis, sputum. CARDIOVASCULAR: Denies chest pain, palpitations, orthopnea, edema, GASTROINTESTINAL: Denies nausea, vomiting, abdominal pain, diarrhea, constipation, melena. : Denies dysuria, frequency, incontinence, hematuria, urinary retention. MUSCULOSKELETAL: denies weakness, joint pain, or bony pain SKIN: Reports rash NEUROLOGIC: Denies weakness, headache, numbness, change in speech, confusion, seizures, incoordination. PSYCHIATRIC: No concerning psychosocial issues. 12 point review of systems is negative except for those stated above Patient History <Real Guevara PA-C - Last Filed: 02/01/23 18:05> Medical History Anxiety (~2005) Bigeminy (~1998) Foot pain (~2006) Seizure disorder Surgical History Anesthesia H/O foot surgery Family History Grandfather Cancer Diabetes mellitus Grandmother Stroke Social History marital status: unmarried,single household members: family (Father, mother, siblings.) lives independently: Yes occupational status: unemployed do you feel safe at home: Yes Smoking Status: Never smoker substance use type: does not use Type(s) of exercise: walking Smoking Status: Never smoker alcohol intake frequency: holidays/special occasions only Substance Use Type: does not use Exam <Real Guevara PA-C - Last Filed: 02/01/23 18:05> Narrative Exam Narrative: GENERAL: Well-developed patient, in mild distress. HEAD: Atraumatic. Normocephalic. EYES: Pupils equal round and reactive. Extraocular motions intact. No scleral icterus. No injection or drainage. ENT: Nose without bleeding, purulent drainage. Throat without erythema, tonsillar hypertrophy or exudate. Airway patent. NECK: Trachea midline. Non tender CARDIOVASCULAR: Regular rate and rhythm without murmurs, gallops, or rubs. RESPIRATORY: Clear to auscultation. Breath sounds equal bilaterally. No wheezes, rales, or rhonchi. GASTROINTESTINAL: Abdomen soft, non-tender, nondistended. EXTREMITIES: No edema or joint tenderness. BACK: Nontender without deformity or crepitance. No flank tenderness. NEURO: AOx3. SKIN: Some erythema noted to the left side of the neck although unclear if secondary to patient rubbing the area. No obvious rash identified. Initial Vital Signs Initial Vital Signs: Vital Signs Temperature 98.4 F 02/01/23 11:05 Pulse Rate 88 02/01/23 11:05 Respiratory Rate 20 02/01/23 11:05 Blood Pressure 110/63 02/01/23 11:05 Pulse Oximetry 98 02/01/23 11:05 Oxygen Delivery Method Room Air 02/01/23 11:05 <Екатерина Pagan DO - Last Filed: 02/01/23 18:54> Initial Vital Signs Initial Vital Signs: Vital Signs Temperature 98.4 F 02/01/23 11:05 Pulse Rate 88 02/01/23 11:05 Respiratory Rate 20 02/01/23 11:05 Blood Pressure 110/63 02/01/23 11:05 Pulse Oximetry 98 02/01/23 11:05 Oxygen Delivery Method Room Air 02/01/23 11:05 Course <Real Guevara PA-C - Last Filed: 02/01/23 18:05> Orders Ordered: Discontinued Medications Methylprednisolone (Methylprednisolone 125 Mg/2 Ml Vial) 125 mg IV NOW ONE Stop: 02/01/23 12:03 Last Admin: 02/01/23 12:25 Dose: 125 mg Documented By: LANDEN Vital Signs Vital signs: Vital Signs - 8 hr 02/01/23 11:05 02/01/23 13:27 Temperature 98.4 F Pulse Rate 88 77 Respiratory Rate 20 16 Blood Pressure 110/63 114/68 Pulse Oximetry 98 98 Oxygen Delivery Method Room Air Room Air <Екатерина Pagan DO - Last Filed: 02/01/23 18:54> Orders Ordered: Discontinued Medications Methylprednisolone (Methylprednisolone 125 Mg/2 Ml Vial) 125 mg IV NOW ONE Stop: 02/01/23 12:03 Last Admin: 02/01/23 12:25 Dose: 125 mg Documented By: CTS Vital Signs Vital signs: Vital Signs - 8 hr 02/01/23 11:05 02/01/23 13:27 Temperature 98.4 F Pulse Rate 88 77 Respiratory Rate 20 16 Blood Pressure 110/63 114/68 Pulse Oximetry 98 98 Oxygen Delivery Method Room Air Room Air MDM - Allergic Reaction <Real Guevara PA-C - Last Filed: 02/01/23 18:05> MDM Narrative Medical decision making narrative: MDM * differential diagnosis includes but not limited to allergic reaction, acute pharyngitis * Prior records reviewed: Patient has not been here for similar complaints past * My lab interpretation: None obtained * My imgaing interpretation: None obtained * Clinical Decision Rules/Scores evaluated: None * Independent discussions with: None ED Course: This is a 22-year-old female presents emergency department due to a suspected mild allergic reaction secondary to her increased escitalopram use. Patient was in no respiratory distress and had a very mild possible rash the left side of the neck when I saw her. Oropharynx did not appear swollen on exam either. Patient reported taking Benadryl prior to arrival which helped with his symptoms. An additional Solu-Medrol dose was given to her here in the emergency department. Did not give any more Benadryl has patient needed to drive home by herself with her daughter. Recommended she take Benadryl at home as well as the steroids that will be prescribed. Patient was comfortable with this plan. Recommended she speak with the primary care provider about changing of the escitalopram medication. Shared Decision Making: Discussed plan with patient who is comfortable with the plan Social Considerations: None Disposition: Discharged to home Discharge Plan Departure Patient Disposition: Home Clinical Impression: Allergic reaction Instructions: DI for Adverse Drug Reaction -- Allergic Activity Restrictions/Additional Instructions: Thank you for coming to the [facility] Emergency Department today. As we discussed I suspect you having a mild allergic reaction to the medications even taking. The Benadryl he took previously helped with the reaction as well as the steroids that we gave you today here in the emergency department. Please continue taking the Benadryl and prednisone at the prescribed dosing to help treat your allergic reaction. Please speak with the primary care provider about stopping the medication as switching to alternative. The Benadryl may make you feel drowsy so please be careful before taking it before driving or any other activity such as this. I hope you feel better soon. Prescriptions: New diphenhydramine HCl [Benadryl] 25 mg capsule 25 mg PO Q6H 5 Days Qty: 20 0RF prednisone 20 mg tablet 20 mg PO BID 5 Days Qty: 10 0RF No Action alprazolam 0.25 mg tablet 0.25 mg PO BID PRN (Reason: anxiety) Qty: 14 0RF dextroamphetamine-amphetamine [Adderall XR] 20 mg capsule,extended release 24hr 20 mg PO DAILY Qty: 30 0RF escitalopram oxalate [Lexapro] 20 mg tablet 20 mg PO DAILY Qty: 90 1RF cyclobenzaprine 5 mg tablet 5 mg PO TID PRN (Reason: muscle spasm) Qty: 10 0RF Referrals: Jadiel Ware MD [Primary Care Provider] - Stand Alone Forms: Patient Portal/API <Екатерина Pagan DO - Last Filed: 02/01/23 18:54> Cosign ED Attending Coscliveature Attestation: I was immediately available in the department for consultation.
[2023-02-01] MEDS: methylPREDNISolone 125 MG/2 ML VIAL IV (12:25)
[2023-02-01 13:27] VITALS: BP 114/68; PULSE 77; RESP 16; O2SAT 98
== END 2023-02-01 13:32 | disposition home or self-care (01) ==
PROVIDERS: Emergency Provider Physician Assistant Medical; PCP Family Medicine
DX: T78.40XA Allergy, unspecified, initial encounter (principal)
CPT/HCPCS: 96374; 99283; J2930

== ENCOUNTER → 2023-04-27 11:24 | Outpatient (CLI) | payer OTHER, MEDICAID, SELFPAY ==
[2023-04-27 12:06] LABS: Add Manual Diff / Slide Review NO; Basophils Absolute Auto 0 /uL (0-100); Basophils Percent Auto 0.4 % (0-2); Eosinophils Absolute Auto 200 /uL (0-450); Eosinophils Percent Auto 2.3 % (2-4); Hematocrit 41.2 % (36-46); Hemoglobin 13.8 g/dL (12.0-16.0); Lymphocytes Absolute Auto 1900 /uL (1100-4500); Lymphocytes Percent Auto 29.2 % (25-40); Mean Corpuscular HGB Conc 33.5 % (30-36); Mean Corpuscular Hemoglobin 28.6 PG (26-34); Mean Corpuscular Volume 85.4 fL (80-100); Monocytes Absolute Auto 500 /uL (0-900); Monocytes Percent Auto 8.2 % (3-14); Neutrophils Absolute Auto 4000 /uL (1500-7000); Neutrophils Percent Auto 59.9 % (50-75); Platelet Count 207 X10^3/uL (150-400); Red Blood Cell Count 4.83 X10^6/uL (4.0-5.2); Red Cell Distribution Width 13.2 % (11.6-14.8); White Blood Cell Count 6.6 X10^3/uL (4.5-11.0)
[2023-04-27 12:39] LABS: Alanine Aminotransferase 19 IU/L (<35); Albumin 4.4 g/dL (3.5-5.0); Albumin Globulin Ratio 1.5 (1.0-2.8); Alkaline Phosphatase 60 U/L (38-126); Aspartate Aminotransferase 22 IU/L (14-36); BUN Creatinine Ratio 18.4 (6-22); Bilirubin Total 0.6 mg/dL (0.2-1.3); Blood Urea Nitrogen 9 mg/dL (7-17); Calcium 9.2 mg/dL (8.4-10.2); Carbon Dioxide 25 mmol/L (22-32); Chloride 104 mmol/L (98-107); Estimated Glomerular Filt Rate > 60 mL/min (>60); Glucose 97 mg/dL (70-100); HEMOLYSIS < 15 (0-50); Potassium 4.1 mmol/L (3.4-5.1); Sodium 138 mmol/L (137-145); Total Protein 7.4 g/dL (6.3-8.2)
[2023-04-27 13:07] LABS: TSH w/ Reflex to FT4 1.38 uIU/mL (0.47-4.68)
[2023-04-28 11:16] LABS: x Labcorp Estim. Avg Glu (eAG) 100 mg/dL (.); x Labcorp Hemoglobin A1c 5.1 % (4.8-5.6)
== END ==
PROVIDERS: PCP Family Medicine; Referring Provider Family Medicine; Visit Provider Family Medicine
DX: F39 Unspecified mood [affective] disorder (principal); F41.0 Panic disorder [episodic paroxysmal anxiety]; F41.9 Anxiety disorder, unspecified; F98.8 Other specified behavioral and emotional disorders with onset usually occurring in childhood and adolescence
CPT/HCPCS: 36415; 80053; 83036; 84443; 85025

== ENCOUNTER → 2023-06-19 10:23 | Outpatient (CLI) | payer OTHER, MEDICAID, SELFPAY ==
[2023-06-21 01:04] LABS: x Labcorp Estim. Avg Glu (eAG) 105 mg/dL (.); x Labcorp Hemoglobin A1c 5.3 % (4.8-5.6)
== END ==
PROVIDERS: PCP Family Medicine; Referring Provider Family Medicine; Visit Provider Family Medicine
DX: F41.9 Anxiety disorder, unspecified (principal); F39 Unspecified mood [affective] disorder; F98.8 Other specified behavioral and emotional disorders with onset usually occurring in childhood and adolescence
CPT/HCPCS: 36415; 83036

== ENCOUNTER → 2023-06-21 16:52 | Outpatient (CLI) | payer OTHER, MEDICAID, SELFPAY ==
[2023-06-21 18:06] LABS: Add Manual Diff / Slide Review NO; Basophils Absolute Auto 0 /uL (0-100); Basophils Percent Auto 0.4 % (0-2); Eosinophils Absolute Auto 200 /uL (0-450); Eosinophils Percent Auto 1.9 % (2-4); Hematocrit 39.5 % (36-46); Hemoglobin 13.4 g/dL (12.0-16.0); Lymphocytes Absolute Auto 2700 /uL (1100-4500); Lymphocytes Percent Auto 31.7 % (25-40); Mean Corpuscular Hemoglobin 28.6 PG (26-34); Mean Corpuscular Volume 84.1 fL (80-100); Monocytes Absolute Auto 800 /uL (0-900); Monocytes Percent Auto 9.4 % (3-14); Neutrophils Absolute Auto 4900 /uL (1500-7000); Neutrophils Percent Auto 56.6 % (50-75); Platelet Count 241 X10^3/uL (150-400); Red Cell Distribution Width 13.2 % (11.6-14.8); White Blood Cell Count 8.7 X10^3/uL (4.5-11.0)
[2023-06-21 18:32] LABS: Alanine Aminotransferase 17 IU/L (<35); Albumin 4.5 g/dL (3.5-5.0); Albumin Globulin Ratio 1.7 (1.0-2.8); Alkaline Phosphatase 86 U/L (38-126); Aspartate Aminotransferase 22 IU/L (14-36); BUN Creatinine Ratio 10.9 (6-22); Bilirubin Total 0.2 mg/dL (0.2-1.3); Blood Urea Nitrogen 5 mg/dL (7-17); Calcium 9.8 mg/dL (8.4-10.2); Carbon Dioxide 24 mmol/L (22-32); Chloride 104 mmol/L (98-107); Estimated Glomerular Filt Rate > 60 mL/min (>60); Globulin 2.7 g/dL (1.7-4.1); Glucose 102 mg/dL (70-100); HEMOLYSIS < 15 (0-50); Lipase 138 U/L (23-300); Potassium 4.2 mmol/L (3.4-5.1); Sodium 139 mmol/L (137-145); Total Protein 7.2 g/dL (6.3-8.2)
== END ==
PROVIDERS: PCP Family Medicine; Referring Provider Family Medicine; Visit Provider Family Medicine
DX: R10.13 Epigastric pain (principal); F41.9 Anxiety disorder, unspecified
CPT/HCPCS: 36415; 80053; 83690; 85025

== ENCOUNTER → 2023-06-30 10:13 | Outpatient (CLI) | payer OTHER, MEDICAID, SELFPAY ==
[2023-07-01 08:39] LABS: Interpretation Negative (Negative)
[2023-07-02 14:38] LABS: Pregnancy Test Urine Negative (Negative)
== END ==
PROVIDERS: PCP Family Medicine; Referring Provider Family Medicine; Visit Provider Family Medicine
DX: F41.9 Anxiety disorder, unspecified (principal); F98.8 Other specified behavioral and emotional disorders with onset usually occurring in childhood and adolescence; R10.13 Epigastric pain
CPT/HCPCS: 81025; 83013

== ENCOUNTER → 2023-07-05 06:58 | Outpatient (CLI) | payer OTHER, MEDICAID, SELFPAY ==
--- NOTE | 2023-07-05 06:59 | DI.US.S_ITS ---
PROCEDURE: US ABDOMEN LIMITED INDICATIONS: EPIGASTRIC PAIN TECHNIQUE: Real-time scanning was performed of the abdominal and retroperitoneal organs, with image documentation. COMPARISON: [facility], , US ABDOMEN LIMITED, 09/13/2021, 0:28. FINDINGS: Liver: Liver is normal in size and homogeneous in echotexture. Gallbladder: The gallbladder wall measures 1.6 mm in diameter. No stones, sludge, pericholecystic fluid or sonographic Tineo sign. Biliary ducts: Intrahepatic bile ducts are non-dilated. Extrahepatic bile duct caliber measures 3.1 mm. Normal is 6-7 mm or less in diameter, or 10 mm or less post-cholecystectomy. Pancreas: The pancreas is poorly characterized. IMPRESSION: No cholelithiasis or findings to suggest choledocholithiasis or acute cholecystitis. Dictated by: Ina Geronimo M.D. on 07/05/2023 at 10:28 Approved by: Ina Geronimo M.D. on 07/05/2023 at 10:31
== END ==
PROVIDERS: PCP Family Medicine; Referring Provider Family Medicine; Visit Provider Family Medicine
DX: R10.13 Epigastric pain (principal)
CPT/HCPCS: 76705

== ENCOUNTER → 2023-07-27 12:13 | Outpatient (CLI) | payer OTHER, MEDICAID, SELFPAY ==
--- NOTE | 2023-07-27 12:14 | DI.US.S_ITS ---
PROCEDURE: US PELVIC COMPLETE INDICATIONS: SPOTTING X 1 WEEK TECHNIQUE: Real-time scanning was performed of the pelvic organs, with image documentation. Additional endovaginal scanning was necessary due to incomplete visualization of the adnexal and endometrial structures by transabdominal scanning. COMPARISON: None. FINDINGS: Uterus: Uterus is anteverted and normal in size at 8.0 x 3.8 x 5.0 cm. The myometrium is homogeneous. The endometrium measures 11.2 mm combined thickness. No fibroids. Ovaries: The right ovary measures 3.8 x 1.9 x 2.0 cm, with a calculated ovarian volume of 5 cc. The left ovary measures 2.0 x 1.7 x 2.9 cm, with a calculated ovarian volume of 5.1 cc. The ovaries have a normal sonographic appearance. Less than 12 follicles can be seen in each ovary. No adnexal masses are seen. There is a simple right ovarian cyst measuring 1.9 cm In maximum diameter. We strive to produce accurate, complete, and clear reports of imaging services. To assist us in improving patient care, this report was composed using standard report templates and voice recognition software. Therefore, it may contain abnormal punctuation, insertions and/or omissions. Occasional wrong-word or sound-alike substitutions may occur. Though we review the report and make efforts to correct it, we do recommend that the report be read carefully in proper context to recognize any text inaccuracies. Dictated by: Elver Metz M.D. on 07/27/2023 at 15:06 Approved by: Elver Metz M.D. on 07/27/2023 at 15:08
== END ==
PROVIDERS: PCP Family Medicine; Referring Provider Specialist; Visit Provider Specialist
DX: N93.9 Abnormal uterine and vaginal bleeding, unspecified (principal); R10.2 Pelvic and perineal pain
CPT/HCPCS: 76830; 76856

== ENCOUNTER 2023-08-13 12:50 | Emergency (ER) | payer OTHER, MEDICAID, SELFPAY ==
[2023-08-13 13:03] VITALS: TEMP 36.9; BMI 30.2
--- NOTE | 2023-08-13 13:08 | DI.RAD.S_ITS ---
PROCEDURE: XR FOOT LT MIN 3V INDICATIONS: [place] landed on patient toe and foot bruising pain TECHNIQUE: 3 views of the foot were acquired. COMPARISON: None. FINDINGS: Bones: No fractures or dislocations. No suspicious bony lesions. Soft tissues: No tibiotalar joint effusion. Achilles tendon appears normal. IMPRESSION: No visualized acute fracture or dislocation. However, if clinical concern and/or pain persist, short interval imaging followup in 7-10 days is recommended, as occult injury cannot be definitively excluded. Dictated by: Kayleigh Power M.D. on 08/13/2023 at 14:58 Approved by: Kayleigh Power M.D. on 08/13/2023 at 14:59
--- NOTE | 2023-08-13 16:15 | ED_ITS ---
HPI - Extremity Injury (Lower) General Chief Complaint: Extremity Injury, Lower Stated Complaint: LT foot injury Time Seen by Provider: 08/13/23 16:11 Source: patient Mode of arrival: Ambulatory History of Present Illness HPI Narrative: Patient here for left foot injury. Her very large dog was playing and lost his balance and landed on her foot. Has bruising to the 1st MTP joint area. Patient wearing sandals. Able to bear weight but has pain. No previous injury to this foot. Related Data Previous Rx's Medication Instructions Recorded ondansetron 4 mg disintegrating 4 mg PO Q8H PRN nausea and 06/21/23 tablet vomiting #60 tabs sertraline 100 mg tablet (Zoloft) 150 mg (1.5 x 100 mg) PO DAILY 06/24/23 #135 tabs dextroamphetamine-amphetamine ER 20 mg PO DAILY #30 caps 07/29/23 20 mg 24hr capsule,extend release (Adderall XR) Allergies Allergy/AdvReac Type Severity Reaction Status Date / Time bee venom protein (honey bee) Allergy Hives Verified 08/13/23 13:04 Penicillins AdvReac Unknown Verified 08/13/23 13:04 red dye AdvReac Mood swings Verified 08/13/23 13:04 Review of Systems Review of Systems Narrative: GENERAL: negative chills, fatigue, malaise, fever, sweats. HEENT: negative sinus pain, ear pain, sore throat RESPIRATORY: negative dyspnea, cough CARDIOVASCULAR: negative chest pain, palpitations GASTROINTESTINAL: negative nausea, vomiting, abdominal pain : negative dysuria, frequency, hematuria MUSCULOSKELETAL: Positive muscle or bony pain SKIN: negative rash, skin lesions NEUROLOGIC: negative weakness, numbness ROS Unobtainable: All systems reviewed & are unremarkable except as noted in HPI and below Patient History Medical History Bigeminy (~1998) Anxiety (~2005) Foot pain (~2006) Seizure disorder Surgical History Anesthesia H/O foot surgery Family History Grandfather Cancer Diabetes mellitus Grandmother Stroke Social History marital status: unmarried,single household members: family (Father, mother, siblings.) lives independently: Yes occupational status: unemployed do you feel safe at home: Yes Smoking Status: Never smoker substance use type: does not use Type(s) of exercise: walking Smoking Status: Never smoker alcohol intake frequency: holidays/special occasions only Substance Use Type: does not use Exam Narrative Exam Narrative: GENERAL: in no distress, not toxic not dyspneic HEAD: Normocephalic. EYES: Pupils equal round EXTREMITIES: No gross deformities. Examination of left foot and ankle. Skin exposed. Bruising ecchymosis to the 1st MTP joint. Limited range of motion at the big toe due to pain. Able to stand and bear weight but not fully. No toenail injury. Foot warm soft and pink strong pedal pulse light touch intact to foot and toes. NEURO: AOx4. SKIN: Warm and dry PSYCH: Not anxious, is cooperative Initial Vital Signs Initial Vital Signs: Vital Signs Temperature 98.5 F 08/13/23 13:03 Course Orders Ordered: ED Orders 08/13/23 13:08 XR foot LT min 3V Stat Vital Signs Vital signs: Vital Signs - 8 hr 08/13/23 13:03 08/13/23 16:28 Temperature 98.5 F Pulse Rate [Left Dorsalis Pedis] 68 MDM - Extremity Injury (Lower) Imaging Data Extremity x-ray #1: Radiologist's Impression: [address] [address] XRay Report Signed Patient: Olivier Herr MR#: [id number] : 2000 Acct:[id number] Age/Sex: 22 / F Date of Service: 08/13/23 Loc: ED Accession Number: [id number] Procedure: XR foot LT min 3V Ordering Provider: Laith Johnson MD PROCEDURE: XR FOOT LT MIN 3V INDICATIONS: [place] landed on patient toe and foot bruising pain TECHNIQUE: 3 views of the foot were acquired. COMPARISON: None. FINDINGS: Bones: No fractures or dislocations. No suspicious bony lesions. Soft tissues: No tibiotalar joint effusion. Achilles tendon appears normal. IMPRESSION: No visualized acute fracture or dislocation. However, if clinical concern and/or pain persist, short interval imaging followup in 7-10 days is recommended, as occult injury cannot be definitively excluded. Dictated by: Kayleigh Power M.D. on 08/13/2023 at 14:58 Approved by: Kayleigh Power M.D. on 08/13/2023 at 14:59 [facility] Narrative Medical decision making narrative: Patient here for left foot injury. Her very large dog was playing and lost his balance and landed on her foot. Has bruising to the 1st MTP joint area. Patien t wearing sandals. Able to bear weight but has pain. No previous injury to this foot. After history and exam x-ray left foot [facility] CC: Left foot pain Complicating co-morbidities: None Data collected from: Patient Medical records reviewed: No recent visit for this complaint Differential considered: Includes but not limited to foot fracture foot contusion foot sprain Exam documented above, pertinent findings include: Tender left foot/bruising Imaging studies independently reviewed: X-ray left foot no acute finding Treatments: Ice pack crutches Re-evaluations: Reviewed results with patient. It is reassuring as well exam. However return if not improving 7 or 10 days for repeat x-ray. Pain is controlled. Patient desires discharge home. Discussion: Appropriate for discharge home exam and imaging are reassuring. Crutches provided nonweightbearing instructions provided. Return precautions reviewed with not improving 7 or 10 days. Referral for Orthopedics provided. Patient desires discharge home. Diagnosis: Left foot contusion Discharge Plan Departure Patient Disposition: Home Clinical Impression: Contusion of foot, left Qualifiers: Encounter type: initial encounter Qualified Code(s): S90.32XA - Contusion of left foot, initial encounter Instructions: DI for Contusion Activity Restrictions/Additional Instructions: Please call provided orthopedic office on Wednesday for re-evaluation of your foot injury. At this time no broken bone seen but if not improving in 7 or 10 days may need repeat x-ray. Use provided crutches until office appointment time. You may try/attempt to slowly bear weight/toe touch has tolerated. Continue ibuprofen or Tylenol for pain. Use provided ice pack 20 minutes at a time as needed for pain and swelling. Prescriptions: No Action sertraline [Zoloft] 100 mg tablet 150 mg PO DAILY Qty: 135 3RF dextroamphetamine-amphetamine [Adderall XR] 20 mg capsule,extended release 24hr 20 mg PO DAILY Qty: 30 0RF ondansetron 4 mg tablet,disintegrating 4 mg PO Q8H PRN (Reason: nausea and vomiting) Qty: 60 0RF Referrals: Roman Beckman MD [Physician] - Jadiel Ware MD [Primary Care Provider] - Stand Alone Forms: Patient Portal/API
[2023-08-13 16:28] VITALS: PULSE 68
== END 2023-08-13 16:31 | disposition home or self-care (01) ==
PROVIDERS: Emergency Provider Emergency Medicine; PCP Family Medicine
DX: S90.32XA Contusion of left foot, initial encounter (principal); X58.XXXA Exposure to other specified factors, initial encounter
CPT/HCPCS: 73630; 99283

== ENCOUNTER → 2023-08-19 09:21 | Outpatient (CLI) | payer OTHER, MEDICAID, SELFPAY ==
--- NOTE | 2023-08-19 09:22 | DI.RAD.S_ITS ---
PROCEDURE: XR FOOT LT 2V INDICATIONS: Left Foot injury TECHNIQUE: 2 views of the foot were acquired. COMPARISON: [facility], , XR FOOT LT MIN 3V, 08/13/2023, 13:13. FINDINGS: Bones: No fractures or dislocations. No suspicious bony lesions. Hallux valgus angulation of the 1st MTP with medial bunion formation. Soft tissues: No tibiotalar joint effusion. Achilles tendon appears normal. IMPRESSION: No acute fracture is seen. Dictated by: Denny Carballo M.D. on 08/19/2023 at 10:44 Approved by: Denny Carballo M.D. on 08/19/2023 at 10:45
== END ==
PROVIDERS: PCP Family Medicine; Referring Provider Registered Nurse Diabetes Educator; Visit Provider Registered Nurse Diabetes Educator
DX: S90.32XA Contusion of left foot, initial encounter (principal)
CPT/HCPCS: 73620

== ENCOUNTER → 2023-12-03 13:00 | Outpatient (CLI) | payer OTHER, MEDICAID, SELFPAY ==
--- NOTE | 2023-12-03 13:01 | DI.US.S_ITS ---
LIMITED ULTRASOUND OF LEFT BREAST AND AXILLA: 12/03/2023 CLINICAL: Palpable right breast lump. No prior exams were available for comparison. Color flow and real-time ultrasound of the left breast 11 o'clock, and axilla regions were performed. Smith scale images of the real-time examination were reviewed. There is a 3 cm x 1.8 cm x 2.5 cm oval mass in the left breast at 11 o'clock posterior depth 7 cm from the nipple. This oval mass is hypoechoic and [id number] in orientation. This correlates as palpated, to the reported pain, and with area of clinical concern. Color flow imaging demonstrates that there is vascularity present. No significant abnormalities were seen sonographically in the left axilla. IMPRESSION: SUSPICIOUS OF MALIGNANCY The 3 cm x 1.8 cm x 2.5 cm oval mass in the left breast resembles a fibroadenoma but given reported rapid growth and significant pain, this is at a low suspicion for malignancy. An ultrasound guided biopsy is recommended. Findings and recommendations were discussed with the patient by Dr. Geronimo during today's examination. This exam was interpreted at Station ID: [id number]. Electronically Signed By: David Nguyen M.D. aty/:12/03/2023 14:28:04 letter sent: Biopsy Required Ultrasound BI-RADS: 4a Low suspicion for malignancy
== END ==
LOC: US 13:00
PROVIDERS: PCP Family Medicine; Referring Provider Family Medicine; Visit Provider Family Medicine
DX: R92.8 Other abnormal and inconclusive findings on diagnostic imaging of breast (principal); N63.22 Unspecified lump in the left breast, upper inner quadrant; N64.4 Mastodynia
CPT/HCPCS: 76642

== ENCOUNTER → 2023-12-17 14:08 | Outpatient (CLI) | payer OTHER, MEDICAID, SELFPAY ==
--- NOTE | 2023-12-17 | PATH_ITS ---
[facility] Accession Number: [id number] No. of containers..01 Tissue . 01 Material submitted: . breast - LEFT BREAST MASS 11:00 7 CM FN . 01 Diagnosis: Left Breast Mass, 11 o'clock, 7 cm FN, Image-Guided Core Biopsies: Benign fibroepithelial lesion, consistent with fibroadenoma, usual type, please see microscopic description. Negative for in situ or invasive malignancy. MRV 12/20/2023 1547 Local . 01 Comment: As part of ongoing quality review specialist, this case is also reviewed by [employer] pathologist, Dr. Jana Blackman, who agrees with the interpretation. . 01 Electronically signed: . Nancy Wynn MD, Pathologist NPI- [id number] . 01 Gross description: . The specimen is received in formalin labeled with the patient's name, , and US bx breast, and consists of multiple yellow to donnelly soft tissue fragments aggregating to 1.8 x 0.7 x 0.1 cm. Inked yellow, filtered, and submitted entirely in cassette A1. The specimen is removed on 12/17/2023 at 1458 hours, time in formalin not provided, cold ischemic time cannot be calculated, total fixation time is approximately 47 hours. ([id number]) /MARCIE 12/18/2023 2148 Local . 01 Microscopic: . Microscopic examination reveals a biphasic proliferation of ducts and associated fibrotic/sclerotic stroma, without significant stromal overgrowth (leaf-like), hypercellularity or mitotic activity, and without atypia of the ductal epithelium. The histologic findings are consistent with a benign fibroadenoma. . There is no evidence of in situ or invasive carcinoma on the submitted biopsies. Please correlate with the imaging studies. . 01 Pathologist provided ICD-10: D24.2 . 01 CPT . 738012 Specimen Comment: A courtesy copy of this report has been sent to [facility] Pathology Performed at: 01 [facility] [address] [place] [address] [id number] MD Tereso Alexandra MD Phone: [phone]
--- NOTE | 2023-12-17 14:09 | DI.US.S_ITS ---
ULTRASOUND GUIDED BIOPSY LEFT BREAST USING VACUUM DEVICE WITH MARKING DEVICE INSERTED AND POST DIGITAL MAMMOGRAPHIC IMAGIN12/17/2023 CLINICAL: Palpable left breast lump. PATIENT CONSENT: Risks (minor bleeding, infection, vasovagal reaction and repeat procedure), benefits and alternatives were explained to the patient and written informed consent was obtained. Correlation is made to exams dated: 12/17/2023 mammogram and 12/03/2023 [facility]. An ultrasound guided biopsy using real-time ultrasound was performed for the 3 cm x 2.5 cm x 1.8 cm oval mass located in the left breast at 11 o'clock posterior depth 7 cm from the nipple. This was described on the previous ultrasound report. The skin was prepped in the usual manner. A 14 gauge biopsy needle was placed adjacent to the abnormality under ultrasound guidance. Once the needle was documented to be in the correct location, four cores were obtained using the Mammotome biopsy system. A clip was inserted into the biopsy cavity. Post procedure digital mammographic imaging demonstrates the location device adjacent to the targeted area. The specimens were sent to the laboratory for pathological analysis. IMPRESSION: ULTRASOUND GUIDED BIOPSY BENIGN Ultrasound guided biopsy of the 3 cm x 2.5 cm x 1.8 cm mass in the left breast at 11 o'clock posterior depth 7 cm from the nipple was successful. Pathology indicates benign fibroadenoma (FA). Pathology results are concordant with imaging findings. A follow-up ultrasound in 6 months is recommended given the history of interval growth. Surgical excision could be considered given the reported pain associated with the mass. This exam was interpreted at Station ID: [id number]. Denny Olson M.D. formerly [facility]/:12/23/2023 11:46:53
--- NOTE | 2023-12-17 14:09 | DI.MG.S_ITS ---
UNILATERAL LEFT DIGITAL DIAGNOSTIC MAMMOGRAM 3D/2D POST-PROCEDURE IMAGING FOR MARKER PLACEMENT: 12/17/2023 CLINICAL: Post left breast ultrasound biopsy, clip placement imaging. Comparison is made to exam dated: 12/03/2023 [facility]. The left breast is extremely dense, which lowers the sensitivity of mammography (category d />75% glandular tissue). There is a marker clip directly adjacent to the mass in the left breast at 11 o'clock middle depth 7 cm from the nipple. This marker clip placement is at the biopsy site. IMPRESSION: POST PROCEDURE MAMMOGRAM FOR MARKER PLACEMENT There was a successful marker clip placement in the left breast middle depth. Based on the Tyrer Cuzick model (a risk assessment model) the patient's lifetime risk is 11.8% and her 10 year risk is 0.1%. According to the ACR, ACS, and NCCN guidelines, an annual breast MRI exam along with mammogram is recommended if the patient's lifetime risk is 20% or greater. This exam was interpreted at Station ID: [id number]. NOTE: For mammograms, a report in lay terms will be sent to the patient. Approximately 15% of breast malignancies will not be visualized mammographically. In the management of a palpable breast mass, a negative mammogram must not discourage biopsy of a clinically suspicious lesion. Electronically Signed By: Denny Carballo M.D. crm/:12/22/2023 09:16:49 ACR BI-RADS Category Post-procedure mammogram for marker placement
== END ==
PROVIDERS: PCP Family Medicine; Referring Provider Family Medicine; Visit Provider Family Medicine
DX: D24.2 Benign neoplasm of left breast (principal)
CPT/HCPCS: 19083; 77065

== ENCOUNTER → 2024-01-10 09:08 | Outpatient (CLI) | payer OTHER, MEDICAID, SELFPAY ==
--- NOTE | 2024-01-10 09:09 | DI.US.S_ITS ---
LIMITED ULTRASOUND OF RIGHT BREAST: 01/10/2024 CLINICAL: Intermittent pain in right breast. Comparison is made to exams dated: 12/17/2023 ultrasound biopsy, 12/17/2023 mammogram, and 12/03/2023 [facility]. Color flow and real-time ultrasound of the right breast 9 o'clock and 12 o'clock regions were performed on the areas of interest. Smith scale images of the real-time examination were reviewed. There is a 1.6 cm x 1.4 cm x 0.7 cm oval mass in the right breast at 9 o'clock posterior depth. This oval mass is hypoechoic with a well-defined boundary, internal echoes, and posterior acoustic enhancement. Color flow imaging demonstrates that there is no vascularity present. This correlates as an incidental finding. There also is a 0.7 cm lymph node in the right breast at 12 o'clock middle depth. This lymph node is hypoechoic. This correlates as an incidental finding. Color flow imaging demonstrates that there is no vascularity present. IMPRESSION: PROBABLY BENIGN The 1.6 cm x 1.4 cm x 0.7 cm oval mass in the right breast at 9 o'clock posterior depth likely represents a fibroadenoma and is probably benign. The 0.7 cm lymph node in the right breast at 12 o'clock middle depth is benign. A follow-up right ultrasound in 6 months is recommended to demonstrate stability. Future imaging is also recommended as follows: 06/17/2024 follow-up left ultrasound for other finding 12/17/23. There is no sonographic abnormality seen in the right breast to correspond with the pain, however, clinical followup is recommended. This exam was interpreted at Station ID: [id number]. Electronically Signed By: Ina flores/:01/11/2024 11:22:09 Entry: - 01/11/2024 11:22:09 letter sent: Followup Recommended Ultrasound BI-RADS: 3 Probably benign
== END ==
PROVIDERS: PCP Family Medicine; Referring Provider Family Medicine; Visit Provider Family Medicine
DX: N63.10 Unspecified lump in the right breast, unspecified quadrant (principal); R92.8 Other abnormal and inconclusive findings on diagnostic imaging of breast
CPT/HCPCS: 76642

== ENCOUNTER 2024-01-19 11:56 | Day surgery (SDC) | payer OTHER, MEDICAID, SELFPAY ==
[2024-01-17 11:49] VITALS: BMI 30.2
[2024-01-19] VITALS (7 sets, daily range): BP systolic 98–133; BP diastolic 61–75; PULSE 65–89; RESP 12–18; TEMP 36.1–36.6; O2SAT 93–99; BMI 29.8
--- NOTE | 2024-01-19 | PATH_ITS ---
[facility] Accession Number: [id number] No. of containers..01 Tissue . 01 Material submitted: . breast - LEFT BREAST MASS . 01 Diagnosis: LEFT BREAST MASS, LUMPECTOMY: Benign fibroepithelial lesion, consistent with fibroadenoma, usual type. Negative for atypical hyperplasia, in situ or invasive carcinoma. MRV 01/24/2024 1446 Local . 01 Electronically signed: . Alexa Huff MD, Pathologist NPI- [id number] . 01 Gross description: . Received: In formalin, labeled with the patient's name, , and left breast mass. Specimen: An oriented left lumpectomy. Weight: 34 grams. Measurement: 6.6 cm from superior to inferior, 4.3 cm from medial to lateral, and 2.5 cm from anterior to posterior. Skin ellipse: Absent. Wire: Absent. Margins: The external surface is yellow and soft to pink-donnelly and rubbery. A short suture designates superior and a long suture designates lateral, per the requisition. Inked as follows: Anterior yellow, posterior black, medial blue, inferior red, lateral green, superior orange. Sliced: From superior to inferior into 14 slices. Lesion: A well-circumscribed, white, rubbery nodule. Size: 2.7 x 2.3 x 1.9 cm. Slices involved: Slices 4-11. Biopsy site: A cylindrical biopsy clip is identified within slice 12. Distance to margins: The nodule grossly approaches the yellow-inked margin, 0.1 cm from the black-inked margin, 0.2 cm from the green-inked margin, 0.8 cm from the blue-inked margin, and greater than 1 cm from all remaining margins. Other: The remaining cut surfaces are yellow to white fibroadipose tissue with fibrous tissue occupying approximately 80% with no additional lesions identified. Fixation: The specimen was removed on 01/19/2024, time not provided. Cold ischemic time cannot be calculated. Total fixation time is approximately 65 hours. Exercise Instruct sections are submitted as follows: A1: Rep slice 1 perpendicular. A2-A3: Entire slice 3. A4-A5: Entire slice 5. A6-A7: Entire slice 7. A8-A9: Entire slice 9. A10-A11: Entire slice 10. A12: Entire slice 12, no lesion, biopsy site. A13: Rep slice 14 perpendicular. ([id number]) /MRV 01/21/2024 1300 Local . 01 Pathologist provided ICD-10: D24.2 . 01 CPT . 261198 Specimen Comment: A courtesy copy of this report has been sent to [phone] Performed at: 01 [facility] [address] [place] [address], [place], [place] [id number] MD Tereso Alexandra MD Phone: [phone]
[2024-01-19] MEDS: LACTATED RINGERS 1,000 ML 42 ML IV (13:20)
--- NOTE | 2024-01-19 14:41 | PM.PREOP ---
Pre-operative Note Interval Note History & Physical reviewed/Exam performed by Physician: Yes Changes to H&P: No
--- NOTE | 2024-01-19 15:28 | SUR.OPER ---
Supine on padded OR bed, head on pillow, arms secured on padded arm boards at <90 degrees abduction, legs uncrossed, safety belt at thigh, tape over blanket over lower legs.
[2024-01-19] MEDS: CLINDAMYCIN 900 MG/50 ML PIGGYBACK 50 MG IV (15:57)
[2024-01-19] MEDS: BUPIVACAINE 0.5% (PF) 30 ML VIAL INJ (16:06)
--- NOTE | 2024-01-19 16:48 | P.OP_ITS ---
Operative Date/Time/Diagnoses Date of procedure: 01/19/24 Time of procedure: 16:48 Pre-op diagnosis: Fibroadenoma Post-op diagnosis: same Procedure & Clinicians Procedure: Left breast lumpectomy Same procedure as scheduled: Yes Indications: 23-year-old woman with a large symptomatic fibroadenoma of the left breast biopsy proven. Surgeon: Corby Resendez Supervisor In Circuit Testing: Abebe Cavazos Anesthesia Type: General Operative Notes Findings: Tissues consistent with fibroadenoma Specimen(s): other (Left breast mass-short stitch superior long stitch lateral) Estimated Blood Loss (mL): 20 Procedure in detail: Patient was brought to the operating room placed supine on the table. Bilateral lower extremity compression devices were applied. She received 900 mg of clindamycin prior to the surgery. General anesthesia was induced he was intubated with a endotracheal tube. She was then prepped and draped in sterile fashion time-out was performed. The left breast mass was palpable at proximally the 11 o'clock position and of several cm firm and anterior. Curvilinear incision was made on the areolar complex. Subcutaneous tissue was divided a skin flap was raised. The mass was grasped and then dissected out using electrocautery circumferentially. The mass was labeled short stitch superior long stitch lateral and passed off the field its appearance was consistent with benign breast disease. Hemostasis was achieved. A total of 30 mL of 0.25% bupivacaine was used for local anesthetic. Subcutaneous tissue was reapproximated using Vicryl and the skin closed with Monocryl followed by the application of Dermabond. She tolerated the procedure well and was transferred to recovery in stable condition. Complications: none Post-operative Condition: stable Disposition: same day surgery
== END 2024-01-19 18:04 | disposition home or self-care (01) ==
PROVIDERS: PCP Family Medicine; Referring Provider Surgery; Visit Provider Surgery
PROC: (CPT 19301; principal; 2024-01-19 13:15)
DX: D24.2 Benign neoplasm of left breast (principal)
CPT/HCPCS: 19120; J1100; J1885; J2250; J2405; J2704; J3010

== ENCOUNTER 2024-04-09 02:15 | Emergency (ER) | payer OTHER, MEDICAID, SELFPAY ==
--- NOTE | 2024-04-09 02:15 | DI.RAD.S_ITS ---
PROCEDURE: XR ANKLE RT MIN 3V INDICATIONS: pain after fall TECHNIQUE: 3 views of the ankle were acquired. COMPARISON: None. FINDINGS: Bones: No fractures or dislocations. Ankle mortise is normally aligned. No suspicious bony lesions. Soft tissues: No tibiotalar joint effusion. Achilles tendon appears normal. Lateral malleolar soft tissue edema. IMPRESSION: No acute bony abnormality or significant effusion. Dictated by: Laith Paiz M.D. on 04/09/2024 at 8:42 Approved by: Laith Paiz M.D. on 04/09/2024 at 8:44
--- NOTE | 2024-04-09 02:15 | ED.GENADULT ---
HPI - General Adult General Chief complaint: Extremity Injury, Lower Stated complaint: R ankle fx Time Seen by Provider: 04/09/24 02:15 Source: patient and EMS Mode of arrival: EMS Limitations: no limitations History of Present Illness HPI narrative: 23-year-old female here for evaluation of a right ankle injury. Prior to arrival she tripped off the bottom step and twisted/caused injury to her right ankle. Was unable to walk afterwards. Has swelling to the outside of the ankle. EMS was called. Received 150 mcg of fentanyl prior to arrival. Good pulses. No other injuries from the event. Related Data Home Medications Medication Instructions Recorded Confirmed omeprazole 20 mg capsule,delayed 20 mg PO DAILY 03/23/24 03/23/24 release Previous Rx's Medication Instructions Recorded ondansetron 4 mg disintegrating 4 mg PO Q8H PRN nausea and 11/05/23 tablet vomiting #60 tabs sertraline 100 mg tablet (Zoloft) 150 mg (1.5 x 100 mg) PO DAILY 12/31/23 #135 tabs acetaminophen 325 mg capsule 650 mg (2 x 325 mg) PO QID PRN 01/19/24 (Tylenol) pain #60 caps ibuprofen 200 mg tablet 400 mg (2 x 200 mg) PO Q6H #60 tabs 01/19/24 dextroamphetamine-amphetamine 10 10 mg PO DAILY #30 tabs 03/23/24 mg tablet (Adderall) dextroamphetamine-amphetamine 10 10 mg PO DAILY #30 tabs 03/23/24 mg tablet (Adderall) dextroamphetamine-amphetamine 10 10 mg PO DAILY PRN adhd #30 tabs 03/23/24 mg tablet (Adderall) dextroamphetamine-amphetamine ER 25 mg PO DAILY #30 caps 03/23/24 25 mg 24hr capsule,extend release (Adderall XR) dextroamphetamine-amphetamine ER 25 mg PO DAILY #30 caps 03/23/24 25 mg 24hr capsule,extend release (Adderall XR) dextroamphetamine-amphetamine ER 25 mg PO DAILY #30 caps 03/23/24 25 mg 24hr capsule,extend release (Adderall XR) Allergies Allergy/AdvReac Type Severity Reaction Status Date / Time bee venom protein (honey bee) Allergy Hives Verified 03/23/24 13:27 Penicillins AdvReac Unknown Verified 03/23/24 13:27 red dye AdvReac Mood swings Verified 03/23/24 13:27 Review of Systems Musculoskeletal Musculoskeletal: Reports system reviewed and no additional complaints, except as documented Integumentary/Breasts Skin/Breast: Reports system reviewed and no additional complaints, except as documented Neurologic Neurologic: Reports system reviewed and no additional complaints, except as documented Patient History Medical History Bigeminy (~1998) Anxiety (~2005) Foot pain (~2006) Seizure disorder Surgical History Anesthesia H/O foot surgery Family History Grandfather Cancer Diabetes mellitus Grandmother Stroke Social History marital status: unmarried,single number of children: 1 household members: significant other and children lives independently: Yes occupational status: employed do you feel safe at home: Yes Smoking Status: Never smoker alcohol intake: current substance use type: does not use Type(s) of exercise: walking Smoking Status: Never smoker alcohol intake frequency: holidays/special occasions only Substance Use Type: does not use Exam Initial Vital Signs Initial Vital Signs: Vital Signs Temperature 98.4 F 04/09/24 02:27 Pulse Rate 71 04/09/24 02:27 Respiratory Rate 16 04/09/24 02:27 Blood Pressure 125/72 04/09/24 02:27 Pulse Oximetry 100 04/09/24 02:27 Oxygen Delivery Method Room Air 04/09/24 02:27 Cardio Pulses: dorsalis pedis present on the right Skin General: no rashes or lesions noted Neuro Sensory Exam: no sensory deficits noted Extrem Other: Swelling and discomfort over the lateral malleolus. No proximal fibula tenderness. Procedures Orthopedic Splinting/Casting Injury #1: Side: right Lower Extremity Injury Location: ankle Lower Extremity Immobilizer: posterior splint Other Orthopedic Equipment: crutches Post splinting neuro exam: no change Post splinting vascular exam: no change Placed by: Nursing Course Orders Ordered: Discontinued Medications Hydrocodone Bitart/Acetaminophen (Hydrocodone/Acet 5/325 Prepack) 1 bottle MISC DIRECTED ONE Stop: 06/02/24 02:25 Last Admin: 04/09/24 02:33 Dose: 1 bottle Documented By: TAHMINA Vital Signs Vital signs: Vital Signs - 8 hr 04/09/24 02:27 04/09/24 03:03 Temperature 98.4 F Pulse Rate 71 71 Respiratory Rate 16 16 Blood Pressure 125/72 111/63 Pulse Oximetry 100 100 Oxygen Delivery Method Room Air Room Air Medical Decision Making Imaging Data Extremity x-ray #1: My Impression: No fractures or dislocations. [facility] Narrative Medical decision making narrative: Patient is neurologically intact. No fractures or dislocations noted on my read the x-rays. She was placed in a splint for soft tissue rest and crutches as well. Patient can ambulate on her leg as tolerated. No proximal fibula tenderness. Will discharge patient home with return precautions. Formal radiology read of the x-ray shows a potential lucent line projecting over the medial aspect of the talus which may be artifactual in nature or due to a nondisplaced fracture. I contacted the patient on 04/09/2024 at approximately 1800 hours. She had not taken the splint off that was placed during her visit in the emergency department. I discussed the x-ray finding with her. The plan will be is for her to keep the splint in place for the next week. She will then take the splint off and see how her foot and ankle feels. She understands that if she was still having quite a bit of discomfort that she will need to be re-evaluated potentially have another x-ray performed. She was given return precautions. She expressed understanding and agreement. Discharge Plan Departure Patient Disposition: Home Clinical Impression: Sprain of ankle, right Instructions: How to Use Crutches, DI for Ankle Sprain, How To Perform RICE (Rest, Ice, Compress, Elevate) Activity Restrictions/Additional Instructions: The x-ray did not show any signs of a fracture. The splint that was placed today is for your comfort. You can take it off to shower. You can walk on your leg as tolerated although you may need the crutches for the next couple days. Try to keep your leg elevated. Ice is important as well. I would not be surprised if he was some bruising over the next couple days. Return to the emergency department for new symptoms. Prescriptions: No Action ondansetron 4 mg tablet,disintegrating 4 mg PO Q8H PRN (Reason: nausea and vomiting) Qty: 60 3RF sertraline [Zoloft] 100 mg tablet 150 mg PO DAILY Qty: 135 3RF omeprazole 20 mg capsule,delayed release(DR/EC) 20 mg PO DAILY dextroamphetamine-amphetamine [Adderall XR] 25 mg capsule,extended release 24hr 25 mg PO DAILY Qty: 30 0RF dextroamphetamine-amphetamine [Adderall XR] 25 mg capsule,extended release 24hr 25 mg PO DAILY Qty: 30 0RF dextroamphetamine-amphetamine [Adderall XR] 25 mg capsule,extended release 24hr 25 mg PO DAILY Qty: 30 0RF dextroamphetamine-amphetamine [Adderall] 10 mg tablet 10 mg PO DAILY Qty: 30 0RF dextroamphetamine-amphetamine [Adderall] 10 mg tablet 10 mg PO DAILY PRN (Reason: adhd) Qty: 30 0RF Rx Instructions: take no later than 2pm. dextroamphetamine-amphetamine [Adderall] 10 mg tablet 10 mg PO DAILY Qty: 30 0RF ibuprofen 200 mg tablet 400 mg PO Q6H Qty: 60 0RF acetaminophen [Tylenol] 325 mg capsule 650 mg PO QID PRN (Reason: pain) Qty: 60 0RF Referrals: Jadiel Ware MD [Primary Care Provider] - Stand Alone Forms: Patient Portal/API
[2024-04-09 02:27] VITALS: BP 125/72; PULSE 71; RESP 16; TEMP 36.9; O2SAT 100; BMI 28.7
[2024-04-09] MEDS: HYDROCODONE/ACET 5/325 PREPACK 1 BOTTLE MISC (02:33)
[2024-04-09 03:03] VITALS: BP 111/63; PULSE 71; RESP 16; O2SAT 100
== END 2024-04-09 03:00 | disposition home or self-care (01) ==
PROVIDERS: Emergency Provider Emergency Medicine; PCP Family Medicine
DX: S93.401A Sprain of unspecified ligament of right ankle, initial encounter (principal); X50.1XXA Overexertion from prolonged static or awkward postures, initial encounter
CPT/HCPCS: 29515; 73610; 99283

== ENCOUNTER 2024-04-14 10:26 | Emergency (ER) | payer OTHER, MEDICAID, SELFPAY ==
[2024-04-14 10:28] VITALS: BP 112/72; PULSE 82; RESP 18; TEMP 36.5; O2SAT 97; BMI 28.1
--- NOTE | 2024-04-14 10:37 | DI.RAD.S_ITS ---
PROCEDURE: XR ANKLE RT MIN 3V INDICATIONS: Fall and splint on 04/09/24 with increasing pain TECHNIQUE: 3 views of the ankle were acquired. COMPARISON: [facility], CR, XR ANKLE RT MIN 3V, 04/09/2024, 2:15. FINDINGS: Bones: Bony structures obscured by cast material. Question very subtle nondisplaced base of 5th metatarsal fracture. This is not definite. Ankle mortise is normally aligned. No suspicious bony lesions. Soft tissues: No tibiotalar joint effusion. Achilles tendon appears normal. IMPRESSION: Bony structures somewhat it scared by plastic cast. Question very subtle base of 5th metatarsal fracture. This is not definite. Dictated by: Elver Metz M.D. on 04/14/2024 at 11:21 Approved by: Elver Metz M.D. on 04/14/2024 at 11:23
--- NOTE | 2024-04-14 14:09 | ED_ITS ---
HPI - Recheck/Abnormal Lab/Rx <Jessica José PA-C - Last Filed: 04/17/24 13:42> General Chief Complaint: Recheck/Abnormal Lab/Rx Stated Complaint: Returning; R Ankle Swollen, Numbness, Pain Time Seen by Provider: 04/14/24 13:43 Source: patient Mode of arrival: Ambulatory History of Present Illness HPI narrative: 23-year-old woman presents with concern for ongoing right foot pain and ankle swelling. On April 09 patient twisted her ankle coming down some steps. Patient was seen in this ER 5 days ago and placed in a fiberglass splint with concern for a sprain and possibly a concerning finding on x-ray that may suggest a fracture of the talus. Patient states since that time she has been doing a good job not walking on this foot and has been using her crutches. She has been trying to keep it elevated. However despite this she has been having persistent pain/increasing pain in her foot and continues to have swelling around her ankle. She came in for follow-up imaging and recheck. She does state that a couple times she has taken her splint off to shower and her father has rewrapped it she notes he has an EMT and they have used gauze to rewrap it. On the inside of the fiberglass material and she has not noticed any hot spots were bothersome areas. The rest of the time she reports she has been keeping it on. She denies any numbness or tingling or new injury to this area. Denies any other complaints or concerns. Related Data Home Medications Medication Instructions Recorded Confirmed omeprazole 20 mg capsule,delayed 20 mg PO DAILY 03/23/24 03/23/24 release Previous Rx's Medication Instructions Recorded ondansetron 4 mg disintegrating 4 mg PO Q8H PRN nausea and 11/05/23 tablet vomiting #60 tabs sertraline 100 mg tablet (Zoloft) 150 mg (1.5 x 100 mg) PO DAILY 12/31/23 #135 tabs acetaminophen 325 mg capsule 650 mg (2 x 325 mg) PO QID PRN 01/19/24 (Tylenol) pain #60 caps ibuprofen 200 mg tablet 400 mg (2 x 200 mg) PO Q6H #60 tabs 01/19/24 dextroamphetamine-amphetamine 10 10 mg PO DAILY #30 tabs 03/23/24 mg tablet (Adderall) dextroamphetamine-amphetamine 10 10 mg PO DAILY #30 tabs 03/23/24 mg tablet (Adderall) dextroamphetamine-amphetamine 10 10 mg PO DAILY PRN adhd #30 tabs 03/23/24 mg tablet (Adderall) dextroamphetamine-amphetamine ER 25 mg PO DAILY #30 caps 03/23/24 25 mg 24hr capsule,extend release (Adderall XR) dextroamphetamine-amphetamine ER 25 mg PO DAILY #30 caps 03/23/24 25 mg 24hr capsule,extend release (Adderall XR) dextroamphetamine-amphetamine ER 25 mg PO DAILY #30 caps 03/23/24 25 mg 24hr capsule,extend release (Adderall XR) Allergies Allergy/AdvReac Type Severity Reaction Status Date / Time bee venom protein (honey bee) Allergy Hives Verified 03/23/24 13:27 Penicillins AdvReac Unknown Verified 03/23/24 13:27 red dye AdvReac Mood swings Verified 03/23/24 13:27 Review of Systems <Jessica José PA-C - Last Filed: 04/17/24 13:42> Review of Systems Narrative: See HPI Patient History <Jessica José PA-C - Last Filed: 04/17/24 13:42> Medical History Bigeminy (~1998) Anxiety (~2005) Foot pain (~2006) Seizure disorder Surgical History Anesthesia H/O foot surgery Family History Grandfather Cancer Diabetes mellitus Grandmother Stroke Social History marital status: unmarried,single number of children: 1 household members: significant other and children lives independently: Yes occupational status: employed do you feel safe at home: Yes Smoking Status: Never smoker alcohol intake: current substance use type: does not use Type(s) of exercise: walking Smoking Status: Never smoker alcohol intake frequency: holidays/special occasions only Alcohol type: wine Substance Use Type: does not use Exam <Jessica José PA-C - Last Filed: 04/17/24 13:42> Narrative Exam Narrative: GENERAL: [23] year old patient appears stated age. Well-developed patient, in m ild distress. HEAD: Atraumatic. Normocephalic. EYES: Pupils equal round and reactive. Extraocular motions intact. No scleral icterus. No injection or drainage. ENT: Nose without bleeding, purulent drainage. Airway patent. NECK: Trachea midline. Non tender CARDIOVASCULAR: Regular rate and rhythm RESPIRATORY: No increased work of breathing or respiratory distress EXTREMITIES: There is a long posterior flap splint in place at the right foot and ankle supporting the back of the calf. After removal of external wrapping, limited exam performed through soft cotton gauze wrap with patient having removed her foot and ankle from the splint. Patient still has mild swelling/inflammation of the anterior ankle and pain at the anterior ankle and medial ankle. Also pain with palpation the plantar surface under the heel, there is some tenderness palpation over the proximal 5th metatarsal that is less prominent. Patient does have tenderness in general with palpation over the dorsum of the tarsals. Distal pulses intact, cap refill less than 2 seconds, patient is able to move her toes well. No other edema or joint tenderness. NEURO: AOx3. SKIN: No rash or erythema of visible areas Initial Vital Signs Initial Vital Signs: Vital Signs Temperature 97.7 F 04/14/24 10:28 Pulse Rate 82 04/14/24 10:28 Respiratory Rate 18 04/14/24 10:28 Blood Pressure 112/72 04/14/24 10:28 Pulse Oximetry 97 04/14/24 10:28 Oxygen Delivery Method Room Air 04/14/24 10:28 <Tony De La Rosa MD - Last Filed: 04/22/24 15:21> Initial Vital Signs Initial Vital Signs: Vital Signs Temperature 97.7 F 04/14/24 10:28 Pulse Rate 82 04/14/24 10:28 Respiratory Rate 18 04/14/24 10:28 Blood Pressure 112/72 04/14/24 10:28 Pulse Oximetry 97 04/14/24 10:28 Oxygen Delivery Method Room Air 04/14/24 10:28 Course <Jessica José PA-C - Last Filed: 04/17/24 13:42> Orders Ordered: ED Orders 04/14/24 10:37 XR ankle RT min 3V Stat Vital Signs Vital signs: Vital Signs - 8 hr 04/14/24 10:28 Temperature 97.7 F Pulse Rate 82 Respiratory Rate 18 Blood Pressure 112/72 Pulse Oximetry 97 Oxygen Delivery Method Room Air <Tony De La Rosa MD - Last Filed: 04/22/24 15:21> Orders Ordered: ED Orders 04/14/24 10:37 XR ankle RT min 3V Stat Vital Signs Vital signs: Vital Signs - 8 hr 04/14/24 10:28 Temperature 97.7 F Pulse Rate 82 Respiratory Rate 18 Blood Pressure 112/72 Pulse Oximetry 97 Oxygen Delivery Method Room Air MDM - Recheck/Abnormal Lab/Rx <Jessica José PA-C - Last Filed: 04/17/24 13:42> Differential Diagnosis Differential diagnosis: Likely encounter for wound recheck and other (Encounter for recheck, repeat imaging, fracture, sprain, strain) Imaging Data Extremity x-ray #1: My Impression: Agree with Radiology interpretation Radiologist's Impression: [address] [address] XRay Report Signed Patient: Olivier Herr MR#: [id number] : 2000 Acct:[id number] Age/Sex: 23 / F Date of Service: 04/14/24 Loc: ED Accession Number: [id number] Procedure: XR ankle RT min 3V Ordering Provider: Tony De La Rosa MD PROCEDURE: XR ANKLE RT MIN 3V INDICATIONS: Fall and splint on 04/09/24 with increasing pain TECHNIQUE: 3 views of the ankle were acquired. COMPARISON: [facility], , XR ANKLE RT MIN 3V, 04/09/2024, 2:15. FINDINGS: Bones: Bony structures obscured by cast material. Question very subtle nondisplaced base of 5th metatarsal fracture. This is not definite. Ankle mortise is normally aligned. No suspicious bony lesions. Soft tissues: No tibiotalar joint effusion. Achilles tendon appears normal. IMPRESSION: Bony structures somewhat it scared by plastic cast. Question very subtle base of 5th metatarsal fracture. This is not definite. Dictated by: Elver Metz M.D. on 04/14/2024 at 11:21 Approved by: Elver Metz M.D. on 04/14/2024 at 11:23 [facility] Narrative Medical decision making narrative: Is a well-appearing 23-year-old woman presenting with concern for ongoing foot and ankle pain and mild swelling after injuring her foot and ankle last week on April 09. At that time she was seen in this ER and had a questionable lucency in the talus, she was placed in a posterior slab splint and has been using crutches and nonweightbearing since that time. Today repeat x-rays show a questionable proximal 5th metatarsal fracture and given these 2 findings on x- ray as well as patient's persistent pain and inflammation, she is recommended to see Orthopedics for follow-up. The posterior slab splint does appear to be appropriate and it is not resplinted today. Return precautions provided, follow-up plan discussed, all questions answered. Did provide education to the patient regarding appropriate use of splint and not removing it. Discharge Plan Departure Patient Disposition: Home Clinical Impression: Sprain and strain of ankle Fracture of 5th metatarsal Qualifiers: Encounter type: subsequent encounter Fracture type: closed Physeal involvement: unspecified Laterality: right Fracture healing: with delayed healing Qualified Code(s): S92.351G - Displaced fracture of fifth metatarsal bone, right foot, subsequent encounter for fracture with delayed healing Activity Restrictions/Additional Instructions: *You have been diagnosed with [sprain/strain of ankle/foot, possible 5th metatarsal fracture and possible calcaneal lucency/fracture] *What to do: *Please continue to take your regular medications as directed. [ ] New medication prescriptions sent to your pharmacy: [ ] [ ] New medication written as a paper prescription [ x] No new medications given *Please follow up with your primary care provider in 2-3 days, call for an appointment. Let them know you were seen in the Emergency Department and that we ask that you be seen in follow up. We will electronically transmit a record of today's note if your PCP is in our system. We repeated x-rays today and actually the radiologist now sees something that looks suspicious for fracture on the outer bone of your foot, they had difficulty repeating the view of the bone in her heel that was somewhat suspicious for fracture when you were here 5 days ago with your injury. I would like you to see Orthopedics for further evaluation and please continue to stay in the splint and use crutches elevate your foot as able and do not put any weight on it. I have included orthopedic contact information here in your paperwork below, please call the office. I recommend Tylenol and ibuprofen for pain, do keep the splint on all the time do not take it off for showers but do keep it dry and cover with a plastic bag. If your pain is continuing to worsen or your swelling or you have other symptoms of concern please make sure you get rechecked but please follow up with Orthopedics as recommended ideally in the next 5-7 days. *If you do not have a primary care provider please contact the [facility] Resource line at [phone]. They will ask some questions about your medical history and help get you set up with a doctor in the community. *Return to Emergency Department if you should have any new, worsening or concerning symptoms, such as [fever greater than 101 F, shaking chills, worsening pain, persistent vomiting or other bothersome symptoms] Prescriptions: No Action ondansetron 4 mg tablet,disintegrating 4 mg PO Q8H PRN (Reason: nausea and vomiting) Qty: 60 3RF sertraline [Zoloft] 100 mg tablet 150 mg PO DAILY Qty: 135 3RF omeprazole 20 mg capsule,delayed release(DR/EC) 20 mg PO DAILY dextroamphetamine-amphetamine [Adderall XR] 25 mg capsule,extended release 24hr 25 mg PO DAILY Qty: 30 0RF dextroamphetamine-amphetamine [Adderall XR] 25 mg capsule,extended release 24hr 25 mg PO DAILY Qty: 30 0RF dextroamphetamine-amphetamine [Adderall XR] 25 mg capsule,extended release 24hr 25 mg PO DAILY Qty: 30 0RF dextroamphetamine-amphetamine [Adderall] 10 mg tablet 10 mg PO DAILY Qty: 30 0RF dextroamphetamine-amphetamine [Adderall] 10 mg tablet 10 mg PO DAILY PRN (Reason: adhd) Qty: 30 0RF Rx Instructions: take no later than 2pm. dextroamphetamine-amphetamine [Adderall] 10 mg tablet 10 mg PO DAILY Qty: 30 0RF ibuprofen 200 mg tablet 400 mg PO Q6H Qty: 60 0RF acetaminophen [Tylenol] 325 mg capsule 650 mg PO QID PRN (Reason: pain) Qty: 60 0RF Referrals: Jadiel Ware MD [Primary Care Provider] - Lora Hester MD [Physician] - (talus lucency, possible R 5th metatarsal fx) Stand Alone Forms: Patient Portal/API ED Sign-out <Tony De La Rosa MD - Last Filed: 04/22/24 15:21> Cosign ED Attending Cosignature Attestation: I was immediately available in the department for consultation. This documentation has been reviewed. Supervised by Tony De La Rosa MD
[2024-04-14 14:34] VITALS: BP 110/67; PULSE 66; RESP 12; O2SAT 98
== END 2024-04-14 14:35 | disposition home or self-care (01) ==
PROVIDERS: Emergency Provider Student in an Organized Health Care Education/Training Program; PCP Family Medicine
DX: S92.351G Displaced fracture of fifth metatarsal bone, right foot, subsequent encounter for fracture with delayed healing (principal); S93.401D Sprain of unspecified ligament of right ankle, subsequent encounter; X50.1XXD Overexertion from prolonged static or awkward postures, subsequent encounter
CPT/HCPCS: 73610; 99281; 99282

== ENCOUNTER 2024-12-18 11:22 | Emergency (ER) | payer OTHER, SELFPAY ==
[2024-12-18 11:29] VITALS: BP 125/78; PULSE 78; RESP 18; TEMP 36.6; O2SAT 97; BMI 31.8
[2024-12-18 12:45] LABS: COVID-19 CEPHEID 4-PLEX PCR Negative (Negative); Influenza A - CEPHEID Flu A NEGATIVE (NEGATIVE); Influenza B - CEPHEID Flu B NEGATIVE (NEGATIVE); Respiratory Syncytial Virus Negative (Negative)
[2024-12-18] MEDS: ONDANSETRON 4 MG ODT SL (13:05)
--- NOTE | 2024-12-18 13:59 | ED.NAVMDI ---
HPI - Nausea/Vomiting/Diarrhea <Gloria Arellano PA-C - Last Filed: 12/18/24 17:11> General Chief complaint: Nausea/Vomiting/Diarrhea Stated complaint: dizzy,nausea, abd/migraine pain, confusion Time Seen by Provider: 12/18/24 12:56 Source: patient and family Mode of arrival: Wheelchair History of Present Illness HPI Narrative: 24-year-old female presents to the ED with 3-4 days of abdominal pain. Patient states that her pain started as mild abdominal pain in the epigastric, periumbilical region. This morning, patient's pain has worsened, patient has been unable to keep down solids or fluids due to nausea and vomiting. No fever, chills, chest pain, shortness of breath, cough. Patient states she is currently on her menstrual period. Patient has a distant history of H pylori which was treated and verified as resolved. No history of GERD, other GI issues. Related Data Home Medications Medication Instructions Recorded Confirmed omeprazole 20 mg capsule,delayed 20 mg PO DAILY 03/23/24 11/13/24 release Previous Rx's Medication Instructions Recorded acetaminophen 325 mg capsule 650 mg (2 x 325 mg) PO QID PRN 01/19/24 (Tylenol) pain #60 caps ibuprofen 200 mg tablet 400 mg (2 x 200 mg) PO Q6H #60 tabs 01/19/24 ondansetron 4 mg disintegrating 4 mg PO Q8H PRN nausea and 06/27/24 tablet vomiting #60 tabs propranolol 40 mg tablet 20 mg (1/2 x 40 mg) PO BID PRN 08/22/24 panic/anxiety #60 tabs citalopram 10 mg tablet (Celexa) 10 mg PO DAILY #90 tabs 11/13/24 dextroamphetamine-amphetamine 10 10 mg PO DAILY PRN adhd #30 tabs 11/13/24 mg tablet (Adderall) dextroamphetamine-amphetamine 10 10 mg PO DAILY PRN adhd #30 tabs 11/13/24 mg tablet (Adderall) dextroamphetamine-amphetamine 10 10 mg PO DAILY PRN adhd #30 tabs 11/13/24 mg tablet (Adderall) dextroamphetamine-amphetamine ER 25 mg PO DAILY #30 caps 11/13/24 25 mg 24hr capsule,extend release (Adderall XR) dextroamphetamine-amphetamine ER 25 mg PO DAILY #30 caps 11/13/24 25 mg 24hr capsule,extend release (Adderall XR) dextroamphetamine-amphetamine ER 25 mg PO DAILY #30 caps 11/13/24 25 mg 24hr capsule,extend release (Adderall XR) meclizine 25 mg tablet 25 mg PO TID PRN dizziness #30 tabs 12/18/24 metoclopramide HCl 10 mg tablet 10 mg PO Q6H PRN nausea and 12/18/24 (Reglan) vomiting 5 days #20 tabs Allergies Allergy/AdvReac Type Severity Reaction Status Date / Time bee venom protein (honey bee) Allergy Hives Verified 11/13/24 12:55 Penicillins AdvReac Unknown Verified 11/13/24 12:55 red dye AdvReac Mood swings Verified 11/13/24 12:55 Review of Systems <Gloria Arellano PA-C - Last Filed: 12/18/24 17:11> Constitutional Constitutional: Denies chills, Denies fatigue, Denies fever(s), Denies frequent falls, Denies lethargy and Denies weakness Eyes Eyes: Denies change in vision, Denies eye discharge, Denies irritation and Denies loss of vision ENT Ears, Nose, Mouth, and Throat: Denies change in voice, Denies dizziness, Denies neck pain, Denies sore throat and Denies throat swelling Cardiovascular Cardiovascular: Denies chest pain, Denies irregular heart rhythm, Denies lightheadedness, Denies palpitations, Denies dyspnea, Denies dyspnea on exertion and Denies orthopnea Respiratory Respiratory: Denies cough, Denies dyspnea, Denies dyspnea on exertion and Denies wheezing Gastrointestinal Gastrointestinal: Reports abdominal pain, Denies change in bowel habits, Denies diarrhea, Reports nausea and Reports vomiting Musculoskeletal Musculoskeletal: Denies neck pain and Denies numbness Integumentary/Breasts Skin/Breast: Denies pruritus, Denies erythema, Denies rash and Denies wounds Neurologic Neurologic: Denies behavioral changes, Denies confusion, Denies dizziness, Denies frequent falls, Denies loss of vision, Denies numbness and Denies weakness Psychiatric Psychiatric: Denies anxiety, Denies behavioral changes, Denies confusion, Denies depression, Denies homicidal ideation and Denies suicidal ideation Endocrine Endocrine: Denies fatigue, Denies flushing and Denies palpitations Hematologic/Lymphatic Hematologic/Lymphatic: Denies easy bruising Allergic/Immunologic Allergic/Immunologic: Denies urticaria, Denies throat swelling and Denies wheezing Patient History <Gloria Arellano PA-C - Last Filed: 12/18/24 17:11> Medical History Bigeminy (~1998) Anxiety (~2005) Foot pain (~2006) Seizure disorder Surgical History Anesthesia H/O foot surgery Family History Grandfather Cancer Diabetes mellitus Grandmother Stroke Social History marital status: unmarried,single number of children: 1 household members: significant other and children lives independently: Yes occupational status: employed do you feel safe at home: Yes Smoking Status: Never smoker alcohol intake: current substance use type: does not use Type(s) of exercise: walking Smoking Status: Never smoker alcohol intake frequency: holidays/special occasions only Alcohol type: wine Exam <Gloria Arellano PA-C - Last Filed: 12/18/24 17:11> Narrative Exam Narrative: Const General:?cooperative, healthy appearing and comfortable [facility] Head:?normal to inspection Ears:?hearing grossly normal bilaterally Nose:?external nose normal Face and sinus:?normal facial exam and sinuses nontender Mouth:?oral mucosae normal Throat:?posterior oropharynx normal Eyes General:?appearance normal, both eyes and all related structures Neck Neck:?normal visual inspection and no lymphadenopathy noted Resp Effort & Inspection:?normal respiratory effort Auscultation:?clear to auscultation bilaterally Cardio Rate:?regular rate Rhythm:?regular rhythm GI Abdomen is soft, nondistended. Tender to palpation in the right upper quadrant, epigastric Neuro General:?patient alert, patient awake and patient oriented x3; PERRLA; CN 1 through 12 intact bilaterally; gait is normal Initial Vital Signs Initial Vital Signs: Vital Signs Temperature 97.8 F 12/18/24 11:29 Pulse Rate 78 12/18/24 11:29 Respiratory Rate 18 12/18/24 11:29 Blood Pressure 125/78 12/18/24 11:29 Pulse Oximetry 97 12/18/24 11:29 Oxygen Delivery Method Room Air 12/18/24 11:29 <Tony De La Rosa MD - Last Filed: 12/18/24 22:04> Initial Vital Signs Initial Vital Signs: Vital Signs Temperature 97.8 F 12/18/24 11:29 Pulse Rate 78 12/18/24 11:29 Respiratory Rate 18 12/18/24 11:29 Blood Pressure 125/78 12/18/24 11:29 Pulse Oximetry 97 12/18/24 11:29 Oxygen Delivery Method Room Air 12/18/24 11:29 Course <Gloria Arellano PA-C - Last Filed: 12/18/24 17:11> Orders Ordered: ED Orders 12/18/24 13:07 Urine Culture Stat Urine Microscopic Stat 12/18/24 14:03 US abdomen limited Stat 12/18/24 14:05 CT abdomen pelvis w con Stat 12/18/24 14:20 CBC Auto Diff [Complete Blood Count AUTO DIFF] Stat CMP [Comprehensive Metabolic Panel] Stat Lactate (Lactic Acid) Stat Lipase Stat PT [Prothrombin Time INR] Stat PTT [PTT Partial Thromboplastin Garret] Stat Discontinued Medications Sodium Chloride (Normal Saline 0.9%) 1,000 mls @ 1,000 mls/hr IV BOLUS ONE Stop: 12/18/24 15:02 Last Infusion: 12/18/24 15:52 Dose: Infused Documented By: Admin: 12/18/24 14:17 Dose: 1,000 mls/hr Documented By: MPO Acetaminophen (Ofirmev) 1,000 mg in 100 mls @ 400 mls/hr IV NOW ONE Stop: 12/18/24 15:38 Last Infusion: 12/18/24 16:38 Dose: Infused Documented By: Admin: 12/18/24 16:00 Dose: 400 mls/hr Documented By: SPF Ketorolac Tromethamine (Ketorolac 30 Mg/Ml Vial) 15 mg IV NOW ONE Stop: 12/18/24 15:27 Last Admin: 12/18/24 15:59 Dose: 15 mg Documented By: SPF Meclizine HCl (Meclizine Hcl 12.5 Mg Tablet) 25 mg PO NOW ONE Stop: 12/18/24 13:00 Last Admin: 12/18/24 14:17 Dose: Not Given Documented By: ELADIO Meclizine HCl (Meclizine Hcl 12.5 Mg Tablet) 25 mg PO NOW ONE Stop: 12/18/24 15:25 Last Admin: 12/18/24 15:59 Dose: 25 mg Documented By: SPF Metoclopramide HCl (Metoclopramide 10 Mg/2 Ml Inj) 10 mg IV NOW ONE Stop: 12/18/24 14:02 Last Admin: 12/18/24 14:16 Dose: 10 mg Documented By: ELADIO Ondansetron HCl (Ondansetron 4 Mg Odt) 4 mg SL NOW ONE Stop: 12/18/24 13:00 Last Admin: 12/18/24 13:05 Dose: 4 mg Documented By: ZEE Vital Signs Vital signs: Vital Signs - 8 hr 12/18/24 17:49 Pulse Rate 72 Blood Pressure 110/69 Pulse Oximetry 100 Oxygen Delivery Method Room Air <Tony De La Rosa MD - Last Filed: 12/18/24 22:04> Orders Ordered: ED Orders 12/18/24 13:07 Urine Culture Stat Urine Microscopic Stat 12/18/24 14:03 US abdomen limited Stat 12/18/24 14:05 CT abdomen pelvis w con Stat 12/18/24 14:20 CBC Auto Diff [Complete Blood Count AUTO DIFF] Stat CMP [Comprehensive Metabolic Panel] Stat Lactate (Lactic Acid) Stat Lipase Stat PT [Prothrombin Time INR] Stat PTT [PTT Partial Thromboplastin Garret] Stat Discontinued Medications Sodium Chloride (Normal Saline 0.9%) 1,000 mls @ 1,000 mls/hr IV BOLUS ONE Stop: 12/18/24 15:02 Last Infusion: 12/18/24 15:52 Dose: Infused Documented By: Admin: 12/18/24 14:17 Dose: 1,000 mls/hr Documented By: MPO Acetaminophen (Ofirmev) 1,000 mg in 100 mls @ 400 mls/hr IV NOW ONE Stop: 12/18/24 15:38 Last Infusion: 12/18/24 16:38 Dose: Infused Documented By: Admin: 12/18/24 16:00 Dose: 400 mls/hr Documented By: SPF Ketorolac Tromethamine (Ketorolac 30 Mg/Ml Vial) 15 mg IV NOW ONE Stop: 12/18/24 15:27 Last Admin: 12/18/24 15:59 Dose: 15 mg Documented By: SPF Meclizine HCl (Meclizine Hcl 12.5 Mg Tablet) 25 mg PO NOW ONE Stop: 12/18/24 13:00 Last Admin: 12/18/24 14:17 Dose: Not Given Documented By: MPO Meclizine HCl (Meclizine Hcl 12.5 Mg Tablet) 25 mg PO NOW ONE Stop: 12/18/24 15:25 Last Admin: 12/18/24 15:59 Dose: 25 mg Documented By: SPF Metoclopramide HCl (Metoclopramide 10 Mg/2 Ml Inj) 10 mg IV NOW ONE Stop: 12/18/24 14:02 Last Admin: 12/18/24 14:16 Dose: 10 mg Documented By: MPO Ondansetron HCl (Ondansetron 4 Mg Odt) 4 mg SL NOW ONE Stop: 12/18/24 13:00 Last Admin: 12/18/24 13:05 Dose: 4 mg Documented By: SPF Vital Signs Vital signs: Vital Signs - 8 hr 12/18/24 17:49 Pulse Rate 72 Blood Pressure 110/69 Pulse Oximetry 100 Oxygen Delivery Method Room Air MDM - Nausea/Vomiting/Diarrhea <Gloria Arellano PA-C - Last Filed: 12/18/24 17:11> Lab Data 12/18/24 14:20 12/18/24 14:20 Labs: Lab Results 12/18/24 12/18/24 12/18/24 Range/Units 11:37 13:07 14:20 WBC 8.5 (4.5-11.0) X10^3/uL RBC 4.85 (4.0-5.2) X10^6/uL Hgb 14.3 (12.0-16.0) g/dL Hct 42.7 (36-46) % MCV 88.2 (80-100) fL MCH 29.5 (26-34) PG MCHC 33.4 (30-36) % RDW 12.6 (11.6-14.8) % Plt Count 238 (150-400) X10^3/uL Neut % (Auto) 69.5 (50-75) % Lymph % (Auto) 23.1 L (25-40) % [place] % (Auto) 6.3 (3-14) % Eos % (Auto) 0.6 L (2-4) % Baso % (Auto) 0.5 (0-2) % Neut # (Auto) 5900 (3852-7982) /uL Lymph # (Auto) 2000 (4867-1410) /uL [place] # (Auto) 500 (0-900) /uL Eos # (Auto) 100 (0-450) /uL Baso # (Auto) 0 (0-100) /uL PT 11.6 (9.4-12.5) SECONDS INR 1.0 (0.9-1.3) APTT 31 (25.1-36.5) SECONDS Sodium 138 (137-145) mmol/L Potassium 4.3 (3.4-5.1) mmol/L Chloride 106 (98-107) mmol/L Carbon Dioxide 25 (22-32) mmol/L BUN 9 (7-17) mg/dL Creatinine 0.53 (0.52-1.04) mg/dL Estimated GFR > 60 (>60) mL/min BUN/Creatinine Ratio 17.0 (6-22) Glucose 96 (70-100) mg/dL Lactate 1.1 (0.7-2.1) mmol/L Calcium 9.5 (8.4-10.2) mg/dL Total Bilirubin 0.8 (0.2-1.3) mg/dL AST 29 (14-36) IU/L ALT 21 (<35) IU/L Alkaline Phosphatase 60 (38-126) U/L Total Protein 7.8 (6.3-8.2) g/dL Albumin 4.8 (3.5-5.0) g/dL Globulin 3.0 (1.7-4.1) g/dL Albumin/Globulin Ratio 1.6 (1.0-2.8) Lipase 77 (23-300) U/L Urine RBC 1-5/hpf (0-5/HPF) Urine WBC 1-5/hpf (0-5/HPF) Ur Squamous Epith Cells 0-1 /hpf (0-5/HPF) Urine Bacteria None seen (None) Ur Culture Indicated? Specimen cultured Vol Urine Centrifuged 10ml (spun) SARS-CoV-2 (PCR) Negative (Negative) Influenza A (RT-PCR) Flu a negative (NEGATIVE) Influenza B (RT-PCR) Flu b negative (NEGATIVE) RSV (PCR) Negative (Negative) Point of Care Testing Test Results Negative Urine Dip Bedside Urine Glucose Negative Bedside Urine Bilirubin - Negative Bedside Urine Ketone - Negative Urine Specific [place] 1.010 Bedside Urine Occult Blood + Bedside Urine pH 8.0 Bedside Urine Protein - Negative Bedside Urine Urobilinogen - Negative Bedside Urine Nitrite - Negative Bedside Urine Leukocytes +/- 15 Esterase MDM Narrative Medical decision making narrative: 24-year-old female presents to the ED with 3-4 days of abdominal pain. Concern for biliary etiology versus pancreatitis versus SBO versus gastritis versus PUD versus versus other intra-abdominal pathology versus other. Will obtain labs, lipase, lactate, UA, urine hCG, CT abdomen pelvis, abdominal ultrasound. Nausea did not respond to Zofran. Will give Reglan, IV fluids. Will reassess. Labs within normal limits. UA without infection. Urine hCG is negative. No acute findings on CT and ultrasound. Patient responded well to IV fluids, Reglan, meclizine, Tylenol, ketorolac. Patient's symptoms likely BPPV versus migraine. Unclear etiology of abdominal pain. Recommend monitoring symptoms. Recommend continuing meclizine and Reglan if symptoms persist. Recommend follow-up with PCP as soon as possible. ED return precautions discussed with patient. Patient verbalized understanding. Medical records reviewed: Yes <Tony De La Rosa MD - Last Filed: 12/18/24 22:04> Lab Data Labs: Lab Results 12/18/24 12/18/24 12/18/24 Range/Units 11:37 13:07 14:20 WBC 8.5 (4.5-11.0) X10^3/uL RBC 4.85 (4.0-5.2) X10^6/uL Hgb 14.3 (12.0-16.0) g/dL Hct 42.7 (36-46) % MCV 88.2 (80-100) fL MCH 29.5 (26-34) PG MCHC 33.4 (30-36) % RDW 12.6 (11.6-14.8) % Plt Count 238 (150-400) X10^3/uL Neut % (Auto) 69.5 (50-75) % Lymph % (Auto) 23.1 L (25-40) % [place] % (Auto) 6.3 (3-14) % Eos % (Auto) 0.6 L (2-4) % Baso % (Auto) 0.5 (0-2) % Neut # (Auto) 5900 (3009-3269) /uL Lymph # (Auto) 2000 (8138-0971) /uL [place] # (Auto) 500 (0-900) /uL Eos # (Auto) 100 (0-450) /uL Baso # (Auto) 0 (0-100) /uL PT 11.6 (9.4-12.5) SECONDS INR 1.0 (0.9-1.3) APTT 31 (25.1-36.5) SECONDS Sodium 138 (137-145) mmol/L Potassium 4.3 (3.4-5.1) mmol/L Chloride 106 (98-107) mmol/L Carbon Dioxide 25 (22-32) mmol/L BUN 9 (7-17) mg/dL Creatinine 0.53 (0.52-1.04) mg/dL Estimated GFR > 60 (>60) mL/min BUN/Creatinine Ratio 17.0 (6-22) Glucose 96 (70-100) mg/dL Lactate 1.1 (0.7-2.1) mmol/L Calcium 9.5 (8.4-10.2) mg/dL Total Bilirubin 0.8 (0.2-1.3) mg/dL AST 29 (14-36) IU/L ALT 21 (<35) IU/L Alkaline Phosphatase 60 (38-126) U/L Total Protein 7.8 (6.3-8.2) g/dL Albumin 4.8 (3.5-5.0) g/dL Globulin 3.0 (1.7-4.1) g/dL Albumin/Globulin Ratio 1.6 (1.0-2.8) Lipase 77 (23-300) U/L Urine RBC 1-5/hpf (0-5/HPF) Urine WBC 1-5/hpf (0-5/HPF) Ur Squamous Epith Cells 0-1 /hpf (0-5/HPF) Urine Bacteria None seen (None) Ur Culture Indicated? Specimen cultured Vol Urine Centrifuged 10ml (spun) SARS-CoV-2 (PCR) Negative (Negative) Influenza A (RT-PCR) Flu a negative (NEGATIVE) Influenza B (RT-PCR) Flu b negative (NEGATIVE) RSV (PCR) Negative (Negative) Point of Care Testing Test Results Negative Urine Dip Bedside Urine Glucose Negative Bedside Urine Bilirubin - Negative Bedside Urine Ketone - Negative Urine Specific [place] 1.010 Bedside Urine Occult Blood + Bedside Urine pH 8.0 Bedside Urine Protein - Negative Bedside Urine Urobilinogen - Negative Bedside Urine Nitrite - Negative Bedside Urine Leukocytes +/- 15 Esterase Discharge Plan Departure Patient Disposition: Home Clinical Impression: Dizziness Vomiting Qualifiers: Vomiting type: unspecified Nausea presence: with nausea Qualified Code(s): R11.2 - Nausea with vomiting, unspecified Abdominal pain Qualifiers: Abdominal location: upper abdomen, unspecified Qualified Code(s): R10.10 - Upper abdominal pain, unspecified Instructions: Vertigo, DI for Abdominal Pain-Adult, DI for Vomiting -- Adult Activity Restrictions/Additional Instructions: You were evaluated in the ED today for abdominal pain, nausea, vomiting, dizziness. Your labs, CT scan, ultrasound were normal. Your symptoms improved with IV fluids, Reglan, ketorolac, Tylenol, meclizine. You are being prescribed Reglan and meclizine to continue for the next few days if you have symptoms. Please follow-up with your PCP as soon as possible. Return to the ED if you have worsening symptoms. Prescriptions: New meclizine 25 mg tablet 25 mg PO TID PRN (Reason: dizziness) Qty: 30 0RF metoclopramide HCl [Reglan] 10 mg tablet 10 mg PO Q6H PRN (Reason: nausea and vomiting) 5 Days Qty: 20 0RF No Action ondansetron 4 mg tablet,disintegrating 4 mg PO Q8H PRN (Reason: nausea and vomiting) Qty: 60 3RF omeprazole 20 mg capsule,delayed release(DR/EC) 20 mg PO DAILY propranolol 40 mg tablet 20 mg PO BID PRN (Reason: panic/anxiety) Qty: 60 3RF dextroamphetamine-amphetamine [Adderall XR] 25 mg capsule,extended release 24hr 25 mg PO DAILY Qty: 30 0RF dextroamphetamine-amphetamine [Adderall] 10 mg tablet 10 mg PO DAILY PRN (Reason: adhd) Qty: 30 0RF dextroamphetamine-amphetamine [Adderall] 10 mg tablet 10 mg PO DAILY PRN (Reason: adhd) Qty: 30 0RF Rx Instructions: take no later than 2pm. dextroamphetamine-amphetamine [Adderall] 10 mg tablet 10 mg PO DAILY PRN (Reason: adhd) Qty: 30 0RF dextroamphetamine-amphetamine [Adderall XR] 25 mg capsule,extended release 24hr 25 mg PO DAILY Qty: 30 0RF dextroamphetamine-amphetamine [Adderall XR] 25 mg capsule,extended release 24hr 25 mg PO DAILY Qty: 30 0RF citalopram [Celexa] 10 mg tablet 10 mg PO DAILY Qty: 90 3RF ibuprofen 200 mg tablet 400 mg PO Q6H Qty: 60 0RF acetaminophen [Tylenol] 325 mg capsule 650 mg PO QID PRN (Reason: pain) Qty: 60 0RF Referrals: Jadiel Ware MD [Primary Care Provider] - Stand Alone Forms: Patient Portal/API/Survey ED Sign-out <Tony De La Rosa MD - Last Filed: 12/18/24 22:04> Cosign ED Attending Cosignature Attestation: I was immediately available in the department for consultation. This documentation has been reviewed and I agree with assessment and plan. Supervised by Tony De La Rosa MD
--- NOTE | 2024-12-18 14:03 | DI.US.S_ITS ---
PROCEDURE: US ABDOMEN LIMITED INDICATIONS: RUQ pain TECHNIQUE: Real-time scanning was performed of the abdominal and retroperitoneal organs, with image documentation. COMPARISON: [facility], US, US ABDOMEN LIMITED, 07/05/2023, 7:04. [facility], CT, CT ABDOMEN PELVIS W CON, 12/18/2024, 14:44. FINDINGS: Liver: Liver is normal in size and homogeneous in echotexture. Gallbladder: No gallstones. No wall thickening. No pericholecystic edema. Negative sonographic Tineo's sign. Biliary ducts: Intrahepatic bile ducts are non-dilated. Extrahepatic bile duct caliber measures 1.6 mm. Normal is 6-7 mm or less in diameter, or 10 mm or less post-cholecystectomy. Pancreas: Visualized portions of the pancreas are sonographically normal. Miscellaneous: No free abdominal fluid. IMPRESSION: Unremarkable gallbladder. Dictated by: Kayleigh Power M.D. on 12/18/2024 at 15:33 Approved by: Kayleigh Power M.D. on 12/18/2024 at 15:33
--- NOTE | 2024-12-18 14:05 | DI.CT.S_ITS ---
PROCEDURE: CT ABDOMEN PELVIS W CON INDICATIONS: RUQ, epigastric pain TECHNIQUE: After the administration of intravenous contrast, axial sections acquired from the lung bases to the pubic symphysis. Coronal and sagittal reformats were performed. For radiation dose reduction, the following was used: automated exposure control, adjustment of mA and/or kV according to patient size. COMPARISON: [facility], CT, CT KIDNEY URETER BLADDER (KUB), 02/20/2022, 4:41. [facility], CT, CT ABDOMEN PELVIS W CON, 09/13/2021, 1:35. FINDINGS: Image quality: Diagnostic. Lower Chest: No significant findings. ABDOMEN: Liver: No solid mass. Steatosis. Gallbladder: Questionable ill-defined areas of possible stone within the lumen. No wall thickening. Biliary ducts: No biliary dilation. Pancreas: No ductal dilation. Spleen: Size is within normal limits. Adrenal Glands: No adrenal nodules. Kidneys and Ureters: No hydronephrosis. No solid mass. No complex renal cystic lesion which requires follow up. Stomach and Bowel: Normal colonic caliber, without significant wall thickening. Hiatal hernia. Peritoneum: No abnormal intraperitoneal fluid. No free air. Ventral Wall: No significant ventral hernia. Abdominal Nodes: No retroperitoneal or mesenteric adenopathy by size criteria. Vessels: Aorta and inferior vena cava are normal in size. PELVIS: Pelvic Organs: Unremarkable. Bladder: No bladder wall thickening, accounting for underdistention. Pelvic Nodes: No enlarged lymph nodes. Miscellaneous: No inguinal hernias are seen. Bones: No aggressive osseous abnormality. IMPRESSION: Ill-defined questionable stones within the gallbladder lumen. No wall thickening. Ultrasound may be obtained for further evaluation. Dictated by: Kayleigh Power M.D. on 12/18/2024 at 15:28 Approved by: Kayleigh Power M.D. on 12/18/2024 at 15:30
[2024-12-18] MEDS: METOCLOPRAMIDE 10 MG/2 ML INJ IV (14:16)
[2024-12-18] MEDS: SODIUM CHLORIDE 0.9% 1,000 ML 1000 ML IV (14:17)
[2024-12-18 14:27] LABS: Urine Volume 10mL (spun)
[2024-12-18 14:28] LABS: Add Manual Diff / Slide Review NO; Basophils Absolute Auto 0 /uL (0-100); Basophils Percent Auto 0.5 % (0-2); Eosinophils Absolute Auto 100 /uL (0-450); Eosinophils Percent Auto 0.6 % (2-4); Hematocrit 42.7 % (36-46); Hemoglobin 14.3 g/dL (12.0-16.0); Lymphocytes Absolute Auto 2000 /uL (1100-4500); Lymphocytes Percent Auto 23.1 % (25-40); Mean Corpuscular HGB Conc 33.4 % (30-36); Mean Corpuscular Hemoglobin 29.5 PG (26-34); Mean Corpuscular Volume 88.2 fL (80-100); Monocytes Absolute Auto 500 /uL (0-900); Monocytes Percent Auto 6.3 % (3-14); Neutrophils Absolute Auto 5900 /uL (1500-7000); Neutrophils Percent Auto 69.5 % (50-75); Platelet Count 238 X10^3/uL (150-400); Red Blood Cell Count 4.85 X10^6/uL (4.0-5.2); Red Cell Distribution Width 12.6 % (11.6-14.8); White Blood Cell Count 8.5 X10^3/uL (4.5-11.0)
[2024-12-18 14:29] LABS: Bacteria Urine None Seen; Culture Indicated Urine Specimen Cultured; RBC Urine 1-5/HPF (0-5/HPF); Squamous Epithelial Cell Urine 0-1 /HPF (0-5/HPF); WBC Urine 1-5/HPF (0-5/HPF)
[2024-12-18 14:35] LABS: Prothrombin Time 11.6 SECONDS (9.4-12.5)
[2024-12-18 14:38] LABS: PTT Partial Thromboplastin Tim 31 SECONDS (25.1-36.5)
[2024-12-18 14:40] LABS: Alanine Aminotransferase 21 IU/L (<35); Albumin 4.8 g/dL (3.5-5.0); Albumin Globulin Ratio 1.6 (1.0-2.8); Alkaline Phosphatase 60 U/L (38-126); Aspartate Aminotransferase 29 IU/L (14-36); Bilirubin Total 0.8 mg/dL (0.2-1.3); Blood Urea Nitrogen 9 mg/dL (7-17); Calcium 9.5 mg/dL (8.4-10.2); Carbon Dioxide 25 mmol/L (22-32); Chloride 106 mmol/L (98-107); Estimated Glomerular Filt Rate > 60 mL/min (>60); Glucose 96 mg/dL (70-100); HEMOLYSIS < 15 (0-50); Lipase 77 U/L (23-300); Potassium 4.3 mmol/L (3.4-5.1); Sodium 138 mmol/L (137-145); Total Protein 7.8 g/dL (6.3-8.2)
[2024-12-18 14:49] LABS: Lactate (Lactic Acid) 1.1 mmol/L (0.7-2.1)
[2024-12-18] MEDS: KETOROLAC 30 MG/ML VIAL 15 MG IV (15:59)
[2024-12-18] MEDS: MECLIZINE HCL 12.5 MG TABLET 25 MG PO (15:59)
[2024-12-18] MEDS: ACETAMINOPHEN IV 1,000 MG/100 ML VIAL 400 MG IV (16:00)
[2024-12-18 17:49] VITALS: BP 110/69; PULSE 72; O2SAT 100
== END 2024-12-18 17:50 | disposition home or self-care (01) ==
PROVIDERS: Emergency Provider Student in an Organized Health Care Education/Training Program; PCP Family Medicine
DX: R10.13 Epigastric pain (principal); R10.33 Periumbilical pain; R11.2 Nausea with vomiting, unspecified; R42 Dizziness and giddiness
CPT/HCPCS: 87635; 87400 ×2; 87420; 0241U; 36415; 74177; 76705; 80053; 81003; 81015; 81025; 83605; 83690; 85025; 85610; 85730; 87086; 96361; 96365; 96375; 99284; 99285; J0131; J1885; J2765; Q9967

== ENCOUNTER → 2025-08-21 11:35 | Outpatient (CLI) | payer OTHER, SELFPAY ==
--- NOTE | 2025-08-21 11:36 | DI.RAD.S_ITS ---
PROCEDURE: XR KNEE LT 3V INDICATIONS: L knee pain TECHNIQUE: 3 views of the knee were acquired. COMPARISON: None. FINDINGS: Bones: No fractures or dislocations. No suspicious bony lesions. Soft tissues: No joint effusion. No suspicious soft tissue calcifications. IMPRESSION: No acute bony abnormality or significant effusion. Dictated by: Leslie Arroyo M.D. on 08/21/2025 at 14:43 Approved by: Leslie Arroyo M.D. on 08/21/2025 at 14:45
== END ==
PROVIDERS: PCP Family Medicine; Referring Provider Family Medicine; Visit Provider Family Medicine
DX: M25.562 Pain in left knee (principal)
CPT/HCPCS: 73562

== ENCOUNTER → 2025-09-12 17:09 | Outpatient (CLI) | payer OTHER, SELFPAY ==
--- NOTE | 2025-09-12 17:09 | DI.MRI.S_ITS ---
PROCEDURE: MR KNEE LT WO CON
== END ==
LOC: MRI 17:09
PROVIDERS: PCP Family Medicine; Referring Provider Orthopaedic Surgery; Visit Provider Orthopaedic Surgery
DX: S80.02XA Contusion of left knee, initial encounter (principal); M25.562 Pain in left knee; M22.8X1 Other disorders of patella, right knee
CPT/HCPCS: 73721